=== PATIENT | female | born 1970 | race Caucasian/White ===

== ENCOUNTER 2017-01-07 23:39 | Inpatient (IN) | payer OTHER ==
[~2017-01-07] VITALS: Ht 160 cm; Wt 115.8 kg
[2017-01-08 00:15] LABS: BASO % 0.3 %; BASO ABS # 0.05 K/uL (0-0.2); COMPLETE YES; EOS % 0.6 %; HEMATOCRIT 46.3 % (37-47); IG% 0.3 %; LYMPH % 32.4 %; LYMPH ABS # 4.82 K/uL (1.2-3.4); MEAN CELL VOLUME 87.4 fL (80-100); MEAN CORPUSCULAR HEMOGLOBIN 30.2 pg (25-34); MEAN CORPUSCULAR HGB CONC 34.6 g/dl (32-36); MEAN PLATELET VOLUME 10.4 fL (7.4-10.4); MONO % 5.4 %; PLATELET COUNT 238 K/uL (130-400); WHITE BLOOD COUNT 14.89 K/uL (4.8-10.8)
--- NOTE | 2017-01-08 00:15 | EMERGENCY ROOM VISIT NOTE ---
History Report prepared by Rose: Dwayne Hines Under the Supervision of: Dr. Asaf Pritchett D.O. First contact with patient: 23:50 Chief Complaint: MENTAL HEALTH EVALUATION Stated Complaint: M.H. History of Present Illness The patient is a 46 year old female who presents to the Emergency Room for a mental health evaluation. Since September, the patient says that she has been on a "downward spiral" with her normal coping mechanisms failing her. She states that she is scared of herself and has been seeing and smelling certain things that are not there. She is smelling skunk and Vicks vapor rub. The patient walked for a total of seven and a half hours today, which she claims that she does when things are "getting bad." The patient is feeling disassociated with her own reality and claims that she is not suicidal but would like to be . Her "logical mind is being overcome with her psychological thoughts." She denies any homicidal ideations or current suicidal ideations. She drinks alcohol occasionally and smoked marijuana two days ago. She is not currently on any medications, but has been in the past. The last time she was evaluated by a mental health professional was three years ago. Source of History: patient Onset: four months ago Position: other (Mental Health) Symptom Intensity: moderate Quality: other (Mental Health) Timing: worsening Note: She is having visual and olfactory hallucinations. She is currently denying any SI or HI. She denies any other abnormal symptoms. Review of Systems See HPI for pertinent positives and negatives. A total of ten systems were reviewed and were otherwise negative. Family History Patient reports no known family medical history. Social History Smoking Status: Current Every Day Smoker Smokeless Tobacco Use: No Alcohol Use: occasionally Drug Use: marijuana Occupation Status: employed Current/Historical Medications No Active Prescriptions or Reported Meds Allergies Coded Allergies: Tetracycline (Verified Allergy, Intermediate, HIVES, 01/08/17) Codeine (Verified Adverse Reaction, Intermediate, CONFUSION, 01/08/17) Physical Exam Vital Signs Date Time Temp Pulse Resp B/P (MAP) Pulse Ox O2 Delivery O2 Flow Rate FiO2 01/07/17 23:44 36.8 96 18 139/89 95 Room Air Physical Exam GENERAL: Awake, alert, well-appearing, in no distress HENT: Normocephalic, atraumatic. Oropharynx unremarkable. EYES: Normal conjunctiva. Sclera non-icteric. NECK: Supple. No nuchal rigidity. FROM. No JVD. RESPIRATORY: Clear to auscultation. CARDIAC: Regular rate, normal rhythm. Extremities warm and well perfused. Pulses equal. ABDOMEN: Soft, non-distended. No tenderness to palpation. No rebound or guarding. No masses. RECTAL: Deferred. MUSCULOSKELETAL: Chest examination reveals no tenderness. The back is symmetrical on inspection without obvious abnormality. There is no CVA tenderness to palpation. No joint edema. LOWER EXTREMITIES: Calves are equal size bilaterally and non-tender. No edema. No discoloration. NEURO: Normal sensorium. No sensory or motor deficits noted. SKIN: No rash or jaundice noted. PSYCH: Olfactory hallucinations. Otherwise cooperative with a normal affect. Currently denies any SI or HI. Medical Decision & Procedures Laboratory Results 01/08/17 00:07 Red Blood Count 5.30, Mean Corpuscular Volume 87.4, Mean Corpuscular Hemoglobin 30.2, Mean Corpuscular Hemoglobin Concent 34.6, Mean Platelet Volume 10.4, Neutrophils (%) (Auto) 61.0, Lymphocytes (%) (Auto) 32.4, Monocytes (%) (Auto) 5.4, Eosinophils (%) (Auto) 0.6, Basophils (%) (Auto) 0.3, Neutrophils # (Auto) 9.09, Lymphocytes # (Auto) 4.82, Monocytes # (Auto) 0.80, Eosinophils # (Auto) 0.09, Basophils # (Auto) 0.05 01/08/17 00:07 Test 01/07/17 23:53 01/08/17 00:07 01/08/17 00:19 Urine Color YELLOW Urine Appearance CLEAR (CLEAR) Urine pH 5.0 (4.5-7.5) Urine Specific [place] 1.013 (1.000-1.030) Urine Protein NEG (NEG) Urine Glucose (UA) NEG (NEG) Urine Ketones NEG (NEG) Urine Occult Blood NEG (NEG) Urine Nitrite NEG (NEG) Urine Bilirubin NEG (NEG) Urine Urobilinogen NEG (NEG) Urine Leukocyte Esterase NEG (NEG) Urine Opiates Screen NEG (NEG) Urine Methadone, Qualitative NEG (NEG) Urine Barbiturates NEG (NEG) Urine Phencyclidine (PCP) Level NEG (NEG) Ur Amphetamine/Methamphetamine NEG (NEG) MDMA (Ecstasy) Screen NEG (NEG) Urine Benzodiazepines Screen NEG (NEG) Urine Cocaine Metabolite NEG (NEG) Urine Marijuana (THC) NEG (NEG) White Blood Count 14.89 K/uL (4.8-10.8) Red Blood Count 5.30 M/uL (4.2-5.4) Hemoglobin 16.0 g/dL (12.0-16.0) Hematocrit 46.3 % (37-47) Mean Corpuscular Volume 87.4 fL (80-100) Mean Corpuscular Hemoglobin 30.2 pg (25-34) Mean Corpuscular Hemoglobin Concent 34.6 g/dl (32-36) Platelet Count 238 K/uL (130-400) Mean Platelet Volume 10.4 fL (7.4-10.4) Neutrophils (%) (Auto) 61.0 % Lymphocytes (%) (Auto) 32.4 % Monocytes (%) (Auto) 5.4 % Eosinophils (%) (Auto) 0.6 % Basophils (%) (Auto) 0.3 % Neutrophils # (Auto) 9.09 K/uL (1.4-6.5) Lymphocytes # (Auto) 4.82 K/uL (1.2-3.4) Monocytes # (Auto) 0.80 K/uL (0.11-0.59) Eosinophils # (Auto) 0.09 K/uL (0-0.5) Basophils # (Auto) 0.05 K/uL (0-0.2) RDW Standard Deviation 41.4 fL (36.4-46.3) RDW Coefficient of Variation 12.9 % (11.5-14.5) Immature Granulocyte % (Auto) 0.3 % Immature Granulocyte # (Auto) 0.04 K/uL (0.00-0.02) Anion Gap 7.0 mmol/L (3-11) Est Creatinine Clear Calc Drug Dose 92.8 ml/min Estimated GFR () 87.8 Estimated GFR (Non- 75.7 BUN/Creatinine Ratio 16.4 (10-20) Calcium Level 9.0 mg/dl (8.5-10.1) Total Bilirubin 0.6 mg/dl (0.2-1) Direct Bilirubin 0.2 mg/dl (0-0.2) Aspartate Amino Transf (AST/SGOT) 14 U/L (15-37) Alanine Aminotransferase (ALT/SGPT) 30 U/L (12-78) Alkaline Phosphatase 84 U/L (45-117) Total Protein 8.1 gm/dl (6.4-8.2) Albumin 3.6 gm/dl (3.4-5.0) Thyroid Stimulating Hormone (TSH) 1.120 uIu/ml (0.300-4.500) Ethyl Alcohol mg/dL < 3.0 mg/dl (0-3) Bedside Glucose 118 mg/dl (70-90) Laboratory results reviewed by me Medications Administered Medications (Trade) Dose Ordered Sig/Sana Route Start Time Stop Time Status Last Admin Dose Admin Nicotine (Nicoderm Cq 21MG Patch) 1 patch QAM TD 01/08/17 09:00 02/07/17 08:59 01/08/17 01:02 1 PATCH Ibuprofen (Motrin Tab) 600 mg NOW STAT PO 01/08/17 01:46 01/08/17 01:47 DC 01/08/17 01:46 600 MG ED Course 2350: The patient was evaluated in room A5. A complete history and physical exam was performed. 0054: The patient is medically cleared for evaluation by case management. 0139: The on-call psychiatrist would like the patient to be evaluated further by a medicine service secondary to a possible neurologic process. 0146: Ordered Motrin Tab 600 mg PO 0159: Ordered Nicotine 1 patch TD 0200: At this time, the clocks were set back to 0100 secondary to daylight savings time. 0204: Upon reexamination, the patient was resting. I discussed the test results and treatment plan with her. [place] [facility] [place] The patient will be evaluated for further management. Medical Decision Differential diagnosis: Etiologies such as mood disorder, infection, hypoglycemia, electrolyte abnormalities, cardiac sources, intracerebral event, toxicologic, neurologic, as well as others were entertained. Patient remained in stable condition patient did not have any issues throughout the emergency department evaluation. The crisis counselor spoke with the psychiatrist and the psychiatrist was asking that the patient be admitted medically for a medical clearance for organic etiologies of her presentation. The case is also discussed with the [place] the hospitalist who accepted the patient for admission Medication Reconcilliation Current Medication List: was personally reviewed by me Blood Pressure Screening Patient's blood pressure: Normal blood pressure Blood pressure disposition: Did not require urgent referral Consults Time Called: [phone] (#2) Consulting Physician: Dr. Mayco [place] [facility] [place]ed Call: [phone] Discussed the patient's case. The patient will be evaluated for further treatment and disposition. Impression Primary Impression: Hallucinations Additional Impressions: Acute psychosis Mood disorder Scribe Attestation The scribe's documentation has been prepared under my direction and personally reviewed by me in its entirety. I confirm that the note above accurately reflects all work, treatment, procedures, and medical decision making performed by me. Departure Information Dispostion Being Evaluated By Hospitalist Prescriptions No Active Prescriptions or Reported Meds Referrals No Doctor, Assigned (PCP) Patient Instructions My [facility] Problem Qualifiers
[2017-01-08 00:33] LABS: BUN/CREATININE RATIO 16.4 (10-20); CREATININE 0.92 mg/dl (0.60-1.20); POTASSIUM 3.8 mmol/L (3.5-5.1)
[2017-01-08 00:44] LABS: THYROID STIMULATING HORMONE 1.12 uIu/ml (0.300-4.500)
[2017-01-08 00:50] LABS: BENZODIAZEPINE, URINE NEG (NEG); COCAINE,URINE NEG (NEG); PHENCYCLIDINE, URINE NEG (NEG)
[2017-01-08 00:52] LABS: MANUAL MICROSCOPIC REQUIRED? NO; REVIEW REQ? NO; URINE APPEARANCE CLEAR (CLEAR); URINE BILIRUBIN NEG (NEG); URINE COLOR YELLOW; URINE NITRITE NEG (NEG); URINE SPECIFIC GRAVITY 1.013 (1.000-1.030); UROBILINOGEN NEG (NEG)
[2017-01-08] MEDS ORDERED: IBUPROFEN 600 MG TAB PO STA (01:46)
[2017-01-08] MEDS ORDERED: NICOTINE 21 MG/24 HR TDSY ONE (01:59)
[2017-01-08] MEDS ORDERED: NURSING VERBAL MED ORDER ONE ×2 (04:00→18:00)
[2017-01-08 04:53] VITALS: O2SAT 95
[2017-01-08 05:11] VITALS: BP 139/89; PULSE 96; TEMP 36.8; Ht 160 cm; Wt 115.8 kg
[2017-01-08] MEDS ORDERED: BISMUTH SUBSALICYLATE PER ML OMNICELL CHARGE PO PRN (05:45)
[2017-01-08] MEDS ORDERED: MAGNESIUM HYDROXIDE SUSP 30 ML UDC PO PRN (05:45)
[2017-01-08] MEDS ORDERED: ALUMINUM/MAGNESIUM SUSP 30 ML UDC PO PRN (05:45)
[2017-01-08] MEDS ORDERED: SODIUM CHLORIDE 0.65% NA SOLN 45 ML (OCEAN) PRN (05:45)
[2017-01-08] MEDS ORDERED: hydrOXYzine HCL 25 MG TAB PO PRN ×2 (05:45)
[2017-01-08 06:40] VITALS: BP 139/89; PULSE 96; TEMP 36.8
[2017-01-08] MEDS: NICOTINE 21 MG/24 HR TDSY TD SCH (08:39)
[2017-01-08] MEDS: ACETAMINOPHEN 325 MG TAB PO PRN ×2 (08:52→16:59)
[2017-01-08] MEDS ORDERED: NICOTINE 21 MG/24 HR TDSY TD SCH (09:00)
[2017-01-08] MEDS ORDERED: ARIPIprazole TAB 5 MG TAB PO ONE (12:00)
[2017-01-08] MEDS ORDERED: CETIRIZINE HCL 10 MG TAB PO ONE (12:00)
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
[2017-01-08] MEDS ORDERED: ALBUTEROL HFA 8 GM INHALER INH PRN (12:15)
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
--- NOTE | 2017-01-08 17:15 | DIAGNOSTIC IMAGING REPORT ---
MRI OF THE BRAIN COMBO CLINICAL HISTORY: Psychosis. Olfactory hallucinations. Seizure. COMPARISON STUDY: No priors. TECHNIQUE: MRI of the brain was performed utilizing various T1 and T2-weighted sequences in the axial, sagittal, and coronal planes. Contrast-enhanced sequences were acquired following the administration of 11 cc of Gadavist. The examination is performed using the seizure protocol. The examination is modestly degraded by motion artifact. FINDINGS: Brain parenchyma: The brain parenchyma is normal in appearance. There is no hemorrhage or mass effect. There is no restricted diffusion to suggest acute ischemia. No enhancing mass lesion is identified on the postcontrast images. Granados-white matter differentiation is preserved. No extra-axial fluid collection is seen. The cerebellar tonsils are normal in configuration. Ventricles, sulci, and cisterns: Normal in configuration. Pituitary and sella: Unremarkable. Intracranial vasculature: Normal flow voids are maintained at the skull base. Orbits: The bony orbits are grossly intact. Orbital contents are normal in appearance. Sinuses and mastoids: Retention cysts are present in the maxillary antra and measure up to 1.9 cm. The remaining paranasal sinuses are clear. The mastoid air cells are well pneumatized. Calvarium: Unremarkable. Cervical cord: Partially visualized cervical spinal cord is normal in morphology and signal intensity. 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 IMPRESSION: No acute intracranial abnormality. Electronically signed by: Fernando Stevenson M.D. 01/08/2017 5:13 PM Dictated Date/Time: 01/08/2017 5:09 PM
[2017-01-08] MEDS: NICOTINE POLACRILEX 2 MG GUM MT PRN (20:39)
[2017-01-09] MEDS: ACETAMINOPHEN 325 MG TAB PO PRN ×3 (00:22→22:21)
[2017-01-09 06:50] VITALS: BP 124/83; PULSE 54; PULSE 66; TEMP 36.5
[2017-01-09] MEDS: CETIRIZINE HCL 10 MG TAB PO SCH (07:26)
[2017-01-09] MEDS: NICOTINE 21 MG/24 HR TDSY TD SCH (07:27)
[2017-01-09 07:39] LABS: CHOLESTEROL/HDL RATIO 2.6
[2017-01-09] MEDS ORDERED: ARIPIprazole TAB 5 MG TAB PO SCH (09:00)
[2017-01-09] MEDS: NICOTINE POLACRILEX 2 MG GUM MT PRN ×3 (09:36→19:46)
--- NOTE | 2017-01-09 15:30 | Psychiatric Progress Notes ---
Progress Note Date of Service Jan 09, 2017. Interval History Amanda Holliday is a 46-year-old female with history of bipolar I disorder who currently lives in [place] with a friend. Amanda Holliday was admitted on a 201 voluntary commitment. Patient is admitted from home . The patient was brought to the ED by the friend due to worsening of mood and psychotic symtpoms to include worsening of olfactory hallucinations (smelling vicks and skunk), visual hallucinations (seeing people out of the corners of her eyes), and feeling disconnected "that things don't seem real". Patient had an MRI on which showed no abnormality. Chief Complaint "I want to but I don't want to kill myself". Subjective Patient was seen & assessed interval progress reviewed with treatment team. Patient lying in bed for interview today. She complains of some pain in her right knee which she says is been there since August. She had been scheduled for an MRI but did not go to her scheduled appointment as she was afraid they would find something that was "surgical." She reports that she feels her thoughts are not logical. She reports that she is continues to be afraid of what she might do. She is having trouble controlling her thoughts because she reports that she is "talking for" here. She feels both manic and depressed at the same time. She reports that she feels anxious and is worried that something bad is going to happen. She gives a history of living 5 places in the past 4 months. She had been living at [facility] for about 2-1/2 months. She was evicted from there in October. 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 However she was using all of her money to drink. Since then she has stayed with 4 different friends and does not feel like going back to the 1 that she was staying with just prior to admission is a good option. She is very negative why she doesn't feel like this is a good option and then states "that probably has a lot to do with how I'm thinking." She has no income. She does get food stamps and reports that her friend buys her cigarettes and sometimes her son gives her money. She denies that she would do anything to harm herself however she is afraid of what she might do if she were not in the hospital as she would like to be . She denies any thoughts of harming others. She does report that earlier today she smelled skunk. At the time of the interview she denied smelling any scents including skunk or Vicks with mint. She denied any visual hallucinations although had these a few days ago where she thought she saw people moving or general movement although realized it wasn't real. Patient does feel varying stories about history of taking medication she does report that she was prescribed Abilify at her last hospitalization 3 years ago at [place]. She describes having difficulty getting this prescription filled on discharge. And then gives varying length of time that she actually took the medication. However she first reported that she stopped taking it a year ago and then she said "I really probably only took it for 3 or 6 months." Review of Systems Psych: denies symptoms other than stated above Constitutional: denied Cardiovascular: denied GI: denied Musculoskeletal: Right knee pain Sleep Information Total Hours of Sleep: 7.25 Meal Information Percent of Breakfast Consumed: 100 Percent of Lunch Consumed: 100 Percent of Dinner Consumed: 100 Mental Status Exam During interview pt is: alert and oriented, cooperative Appearance: appropriately dressed (obese) Eye contact is: good Motor behavior is: steady gait & station, no abnormal motor movements Speech: normal in rate, rhythm & volume (overproductive with some cursing ) Affect: anxious Mood is: other ("manic and anxious and depressed." ) Thought process: goal directed, linear, logical Thought content: paranoid (vaguely paranoid about being unsafe in any place or with herself) Suicidal thought are: denied (but is afraid of her mood state and her possible disinhibited behavior and would like to be ) Homicidal thoughts are: denied Hallucinations: denies auditory, other (smelled skunk earlier today) Cognition: memory grossly intact, attention grossly intact Intelligence estimated to be: average Insight: fair Judgement: fair Impression The patient is a 46-year-old single white female with a long-standing history of what sounds to be bipolar 1 disorder most recently manic now becoming mixed with psychotic features. She describes a long-standing history of hallucinations to include olfactory hallucinations and visual hallucinations as early as her 20s as well as auditory hallucinations. She states these do not occur in between extreme mood states. But when she is feeling and she does now these emerge. Although this could be simply bipolar disorder mixed with psychotic features she does not appear grandiose, she does not have flight of ideas, she does not have loosening of associations, she is not disorganized, her affect seems remarkably reasonable to the setting not extremely depressed nor elevated/grandiose. I am concerned given the nature of the visual hallucinations in the olfactory hallucinations that we should rule out seizure disorder such as temporal lobe epilepsy. We have consulted neurology to ask for their evaluation and opinion on obtaining an EEG and possibly an MRI with focus on temporal lobes. In the meantime given the patient has had benefit on both antiseizure medicines as well as atypical anti-psychotics we will pursue Abilify to target mood stabilization. Although this can worsen seizure symptoms patient is in a protective place and will be evaluated shortly. We will avoid antiseizure medicines until after neurology has rendered and opinion on further evaluation and then decide if there would be utility in considering those medications over Abilify. She states sleep is one of her most long-standing concerns it may be worthwhile to add a make medication to Abilify if she does not begin to sleep as her mood stabilizes. Psychologically the patient is remarkably grounded and able to observe herself and report symptoms she experiences as well as her sense of feeling out of control and fearful of what she will do in this state. It is an odd combination as usually our manic patients with psychotic features has much more limited insight and much more disinhibited behaviors. Furthermore depressed with psychotic features patients usually are much more psychomotor retarded and flat with negative symptoms of psychosis. This patient demonstrates neither. I am not presently worried about an ongoing substance use disorder although I have dissuaded the patient from continuing on marijuana as it can make psychosis worse. Although it does sound like she binge drinks when she is in disinhibited states or has access to alcohol this is not an acute issue but should be addressed during her hospital stay. She does smoke tobacco for many years she has precontemplation all about quitting wanting to focus on her neurologic and psychiatric symptoms at this time. Socially the patient is living with a friend. It sounds like she has had chaotic social life and is without a job and without a home residence in without an ID card. We will appreciate social science instructor help in connecting her to resources in her community so she has follow-up at time of discharge. Plan (1) Mood disorder #1 safety patient feels her mood disorder is so extreme that she feels "would rather be " as well as disconnected and feels she cannot trust her own behavior as she feels out of control and is having hallucinations. Inpatient cares the most appropriately stressed restrictive setting for care at this time until patient's mood stabilized and we are able to get her access to aftercare. #2 neurology consult for their opinion regarding utility of EEG and possible MRI imaging of the temporal lobe to rule out temporal lobe epilepsy given some of the atypical features of her presentation to include olfactory and visual hallucinations that only occur with mood episodes and yet her affect is not consistent with others with manic with psychotic features are depressed with psychotic features as noted above #3 medications for psychosis Abilify 5 mg today and 10 mg by mouth daily with titration as tolerated to stabilize mood and treat psychosis We will obtain fasting lipids and blood sugar in the morning #4 group, lassiter milieu, supportive therapy, safety checks while an inpatient unit 01/09 -fast labs within normal limits. - MRI normal -EEG results pending -patient agrees to increased Abilify to 15 mg. No side effects including akathisia from current dose. (2) Asthma Albuterol inhaler when necessary, Zyrtec to control allergies triggers, recommend she quit smoking (3) GERD (gastroesophageal reflux disease) Patient states dietary modulation helps control her GERD, she will manage teasing her diet from the menu (4) Knee pain, right Patient has access to ibuprofen and Tylenol when necessary on the unit. She will need follow-up with primary care for further evaluation as she said previously she was pending imaging but has not seen primary care in some time. 01/09 Patient may have ibuprofen prn. Patient did report that she has had asthma attack if takes more than 600 mg of ibuprofen at a time. (5) Nicotine dependence Recommend smoking cessation, patient is precontemplation all at this time Discharge / Aftercare Planning Primary Care Physician: Name: None Therapist: Name: None Performance Improvement Coordinator: Name: None Visit Code E&M Code: 66029 Inventory Assets Strengths: Patient is willing for care, she is willing to take medications, she is a good historian, she seems very intelligent. Needs: ID card, aftercare, mood stabilization, safety Risk Factors Assessment : Yes /single/: Yes Health problems: Yes Mental Health Diagnoses: Yes Previous psychiatric stay: Yes Hopelessness: Yes Smoker: Yes Protective Factors Assessment Shinto beliefs: No : No Responsible for young children: No Employed: No Stable relationships: No Supportive family: No Good rapport with provider: No Data Vital Signs Last 24 Hrs: Date Time Temp Pulse Resp B/P (MAP) Pulse Ox O2 Delivery O2 Flow Rate FiO2 01/09/17 06:50 36.5 54 18 124/83 66 124/83 Meds Administered Last 24 Hrs: Current Inpatient Medications Medications (Trade) Dose Ordered Sig/Sana Route Start Time Stop Time Status Last Admin Dose Admin Acetaminophen (Tylenol Tab) 650 mg Q4H PRN PO 01/08/17 05:45 02/07/17 05:44 01/09/17 12:53 650 MG Al Hydroxide/Mg Hydroxide (Maalox Susp) 30 ml Q4H PRN PO 01/08/17 05:45 02/07/17 05:44 Bismuth Subsalicylate (Kaopectate Liqd) 15 ml DAILY PRN PO 01/08/17 05:45 02/07/17 05:44 Magnesium Hydroxide (Milk Of Magnesia Susp) 30 ml DAILY PRN PO 01/08/17 05:45 02/07/17 05:44 Sodium Chloride ([place] Nasal [place]) PRN PRN NA 01/08/17 05:45 02/07/17 05:44 Hydroxyzine HCl (Vistaril Tab) 50 mg HSZ PRN PO 01/08/17 05:45 02/07/17 05:44 Hydroxyzine HCl (Vistaril Tab) 25 mg Q4H PRN PO 01/08/17 05:45 02/07/17 05:44 Nicotine (Nicoderm Cq 21MG Patch) 1 patch QAM TD 01/08/17 09:00 02/07/17 08:59 01/09/17 07:27 1 PATCH Miscellaneous (Remove Nicoderm Patch) 1 ea DAILY@2100 N/A 01/08/17 21:00 02/07/17 20:59 Aripiprazole (Abilify Tab) 10 mg QAM PO 01/09/17 09:00 02/08/17 08:59 01/09/17 07:26 10 MG Cetirizine HCl (zyrTEC TAB) 10 mg QAM PO 01/09/17 09:00 02/08/17 08:59 01/09/17 07:26 10 MG Albuterol (Ventolin Hfa Inhaler) 2 puffs Q4H PRN INH 01/08/17 12:15 02/07/17 12:14 Nicotine Polacrilex ([place] 2MG Gum) 1 piece Q2HWA PRN MT 01/08/17 18:15 02/07/17 18:14 01/09/17 09:36 1 PIECE Lab Results Last 24 Hrs: Last 24 Hours Test 01/09/17 06:51 Fasting Glucose 97 mg/dl Triglycerides Level 73 mg/dl Cholesterol Level 153 mg/dl HDL Cholesterol 59 mg/dl LDL Cholesterol, Calculated 79 mg/dl VLDL Cholesterol, Calculated 15 mg/dl Cholesterol/HDL Ratio 2.6
[2017-01-09] MEDS: IBUPROFEN 600 MG TAB PO PRN (16:58)
--- NOTE | 2017-01-09 17:02 | EEG Procedure Note ---
EEG Procedure Note Date of Service Jan 09, 2017. Start / End Times Start Time: 10:07am End Time: 10:27am Referring Physician Alejandra Collins History 46 year old female with an episode of missed time. EEG for further eval of possible seizure etiology. Home Medication List No Active Prescriptions or Reported Meds Inpatient Medication List Current Inpatient Medications Medications (Trade) Dose Ordered Sig/Sana Route Start Time Stop Time Status Last Admin Dose Admin Acetaminophen (Tylenol Tab) 650 mg Q4H PRN PO 01/08/17 05:45 02/07/17 05:44 01/09/17 12:53 650 MG Al Hydroxide/Mg Hydroxide (Maalox Susp) 30 ml Q4H PRN PO 01/08/17 05:45 02/07/17 05:44 Bismuth Subsalicylate (Kaopectate Liqd) 15 ml DAILY PRN PO 01/08/17 05:45 02/07/17 05:44 Magnesium Hydroxide (Milk Of Magnesia Susp) 30 ml DAILY PRN PO 01/08/17 05:45 02/07/17 05:44 Sodium Chloride (Marshall Nasal Webber) PRN PRN NA 01/08/17 05:45 02/07/17 05:44 Hydroxyzine HCl (Vistaril Tab) 50 mg HSZ PRN PO 01/08/17 05:45 02/07/17 05:44 Hydroxyzine HCl (Vistaril Tab) 25 mg Q4H PRN PO 01/08/17 05:45 02/07/17 05:44 Nicotine (Nicoderm Cq 21MG Patch) 1 patch QAM TD 01/08/17 09:00 02/07/17 08:59 01/09/17 07:27 1 PATCH Miscellaneous (Remove Nicoderm Patch) 1 ea DAILY@2100 N/A 01/08/17 21:00 02/07/17 20:59 Cetirizine HCl (zyrTEC TAB) 10 mg QAM PO 01/09/17 09:00 02/08/17 08:59 01/09/17 07:26 10 MG Albuterol (Ventolin Hfa Inhaler) 2 puffs Q4H PRN INH 01/08/17 12:15 02/07/17 12:14 Nicotine Polacrilex (Nicorette 2MG Gum) 1 piece Q2HWA PRN MT 01/08/17 18:15 02/07/17 18:14 01/09/17 15:36 1 PIECE Aripiprazole (Abilify Tab) 15 mg QAM PO 01/10/17 09:00 02/08/17 08:59 Ibuprofen (Motrin Tab) 600 mg TID PRN PO 01/09/17 15:45 02/08/17 15:44 Description This is a 21 electrode EEG with a single channel dedicated to limited EKG. The electrodes were placed in accordance with the International 10-20 system. At the start of the recording the patient was in an awake state. The background was well organized and composed of symmetric mixed alpha and beta frequencies. There was a well formed symmetric moderate amplitude posterior dominant rhythm of 9-10Hz that was reactive to eye opening and closure. Hyperventilation was not done. Photic stimulation at various frequencies produced no abnormalities. There was no state changes or sleep transients. Interpretation This is a normal awake only routine EEG There was no electrographic seizures or epileptiform discharges. Clinical Correlation A normal EEG does not rule out epilepsy if there is a strong clinical suspicion.
[2017-01-10 06:44] VITALS: BP_SYST 128; BP_SYST 133; BP_DIAS 81; BP_DIAS 88; PULSE 57; PULSE 66; TEMP 36.4
[2017-01-10] MEDS: IBUPROFEN 600 MG TAB PO PRN (06:55)
[2017-01-10] MEDS: NICOTINE POLACRILEX 2 MG GUM MT PRN ×3 (07:41→18:41)
[2017-01-10] MEDS: ARIPIprazole TAB 5 MG TAB PO SCH (08:20)
[2017-01-10] MEDS: CETIRIZINE HCL 10 MG TAB PO SCH (08:20)
[2017-01-10] MEDS: NICOTINE 21 MG/24 HR TDSY TD SCH (08:23)
--- NOTE | 2017-01-10 09:45 | Psychiatric Progress Notes ---
Progress Note Date of Service Jan 10, 2017. Interval History Amanda Holliday is a 46-year-old female with history of bipolar I disorder who currently lives in [place] with a friend. Amanda Holliday was admitted on a 201 voluntary commitment. Patient is admitted from home . The patient was brought to the ED by the friend due to worsening of mood and psychotic symtpoms to include worsening of olfactory hallucinations (smelling vicks and skunk), visual hallucinations (seeing people out of the corners of her eyes), and feeling disconnected "that things don't seem real". Patient had an MRI on which showed no abnormality and an EEG on 01/10 which was unremarkable. Chief Complaint "I woke up anxious". Subjective Patient was seen & assessed interval progress reviewed with nursing. Staff report the patient's affect has been anything from flat to jovial. She has been out of bed and interacting with peers. Patient reports that she woke up very anxious this morning. She has been attempting to distract herself from her anxiety by focusing on trivial things such as thinking about "how this coffee cup is made". She continues to feel that life isn't worth living and that she would rather not be here but denies active intention or plan for suicide. She denies any side effects from Abilify. She does feel like her thoughts are slower and more logical. The patient talks about her stressors of no income, no place to live. She also reports that her previous landlord did not allow her back into her apartment to get her belongings and she does not have much clothing and does not have any identification. Patient EEG done on is unremarkable. We reviewed her extensive past medication trials; patient had reported vaginal bleeding when she took BuSpar in the past however she did have a total hysterectomy 3 years ago. We did discuss a retrial of this medication but patient prefers not to try again. She agrees to a trial of gabapentin which she has never taken for anxiety off label. Review of Systems Respiratory: No cough, No sputum, No wheezing, No shortness of breath, No dyspnea on exertion, No dyspnea at rest, No hemoptysis, No problem reported Cardiovascular: No chest pain, No orthopnea, No PND, No edema, No claudication , No palpitations, No problem reported Abdomen: No pain, No nausea, No vomiting, No diarrhea, No constipation, No GI bleeding, No problem reported Musculoskeletal: + joint pain (right knee pain) Sleep Information Total Hours of Sleep: 6.50 Meal Information Percent of Breakfast Consumed: 100 Percent of Lunch Consumed: 100 Percent of Dinner Consumed: 100 Mental Status Exam During interview pt is: alert and oriented, cooperative Appearance: appropriately dressed (obese) Eye contact is: good Motor behavior is: steady gait & station (slight limp favoring right knee), no abnormal motor movements Speech: normal in rate, rhythm & volume (some cursing ) Affect: labile, anxious Mood is: anxious Thought process: goal directed, linear, logical Thought content: reality based without delusions Suicidal thought are: denied (but would like to be ) Homicidal thoughts are: denied Hallucinations: denies auditory, denies visual, other (denies smelling skunk or vicks) Cognition: memory grossly intact, attention grossly intact Intelligence estimated to be: average Insight: fair Judgement: fair Summary of Past History The patient reports multiple med trials to include but not limited to: -Seroquel - disconnected -Abilify plus Klonopin - that was the best combination believes her dose was possibly 20 mg, insurance barriers after her discharge from [facility] kept her from continuing that medication -Paxil none Buspar - Vaginal bleeding Depakote weight gain and difficulty with the labs ultimately believe she was placed on Abilify Wellbutrinput on with Depakote believe she tolerated it Lithobid tremor Risperdal - edema Tegretol believes this medicine is familiar she may been on it for a brief time but is unsure Sage extremely tired was accused of being on drugs because she was so obtunded Trazodone ineffective for sleep Ambien ineffective for sleep Baljeet ineffective for sleep "Some XR medication" that insurance wouldn't pay for really helped my sleep Klonopin alongside Abilify and trazodone at last hospital discharge Impression The patient is a 46-year-old single white female with a long-standing history of what sounds to be bipolar 1 disorder most recently manic now becoming mixed with psychotic features. She describes a long-standing history of hallucinations to include olfactory hallucinations and visual hallucinations as early as her 20s as well as auditory hallucinations. She states these do not occur in between extreme mood states. But when she is feeling and she does now these emerge. Although this could be simply bipolar disorder mixed with psychotic features she does not appear grandiose, she does not have flight of ideas, she does not have loosening of associations, she is not disorganized, her affect seems remarkably reasonable to the setting not extremely depressed nor elevated/grandiose. I am concerned given the nature of the visual hallucinations in the olfactory hallucinations that we should rule out seizure disorder such as temporal lobe epilepsy. We have consulted neurology to ask for their evaluation and opinion on obtaining an EEG and possibly an MRI with focus on temporal lobes. In the meantime given the patient has had benefit on both antiseizure medicines as well as atypical anti-psychotics we will pursue Abilify to target mood stabilization. Although this can worsen seizure symptoms patient is in a protective place and will be evaluated shortly. We will avoid antiseizure medicines until after neurology has rendered and opinion on further evaluation and then decide if there would be utility in considering those medications over Abilify. She states sleep is one of her most long-standing concerns it may be worthwhile to add a make medication to Abilify if she does not begin to sleep as her mood stabilizes. Psychologically the patient is remarkably grounded and able to observe herself and report symptoms she experiences as well as her sense of feeling out of control and fearful of what she will do in this state. It is an odd combination as usually our manic patients with psychotic features has much more limited insight and much more disinhibited behaviors. Furthermore depressed with psychotic features patients usually are much more psychomotor retarded and flat with negative symptoms of psychosis. This patient demonstrates neither. I am not presently worried about an ongoing substance use disorder although I have dissuaded the patient from continuing on marijuana as it can make psychosis worse. Although it does sound like she binge drinks when she is in disinhibited states or has access to alcohol this is not an acute issue but should be addressed during her hospital stay. She does smoke tobacco for many years she has precontemplation all about quitting wanting to focus on her neurologic and psychiatric symptoms at this time. Socially the patient is living with a friend. It sounds like she has had chaotic social life and is without a job and without a home residence in without an ID card. We will appreciate social studies teacher help in connecting her to resources in her community so she has follow-up at time of discharge. Plan (1) Mood disorder #1 safety patient feels her mood disorder is so extreme that she feels "would rather be " as well as disconnected and feels she cannot trust her own behavior as she feels out of control and is having hallucinations. Inpatient cares the most appropriately stressed restrictive setting for care at this time until patient's mood stabilized and we are able to get her access to aftercare. #2 neurology consult for their opinion regarding utility of EEG and possible MRI imaging of the temporal lobe to rule out temporal lobe epilepsy given some of the atypical features of her presentation to include olfactory and visual hallucinations that only occur with mood episodes and yet her affect is not consistent with others with manic with psychotic features are depressed with psychotic features as noted above #3 medications for psychosis Abilify 5 mg today and 10 mg by mouth daily with titration as tolerated to stabilize mood and treat psychosis We will obtain fasting lipids and blood sugar in the morning #4 group, lassiter milieu, supportive therapy, safety checks while an inpatient unit 01/09 -fast labs within normal limits. - MRI normal -EEG results pending -patient agrees to increased Abilify to 15 mg. No side effects including akathisia from current dose. 01/10 -EEG done yesterday results: Normal awake only routine EEG. There was no electrographic seizures or epileptiform discharges. - Discussed risks benefits and alternatives for medications for anxiety. Reviewed patient's past med trials. Patient agrees to a trial of gabapentin for anxiety she understands this is an off label use. We'll start at 300 mg today with titration tomorrow to twice a day and increased to 3 times per day on 01/12 -Patient needs aftercare with psychiatry and a therapist. She would benefit from having a rn case manager as she has a history of very poor compliance after discharge from inpatient hospitalizations. (2) Asthma Albuterol inhaler when necessary, Zyrtec to control allergies triggers, recommend she quit smoking (3) GERD (gastroesophageal reflux disease) Patient states dietary modulation helps control her GERD, she will manage teasing her diet from the menu (4) Knee pain, right Patient has access to ibuprofen and Tylenol when necessary on the unit. She will need follow-up with primary care for further evaluation as she said previously she was pending imaging but has not seen primary care in some time. 01/09 Patient may have ibuprofen prn. Patient did report that she has had asthma attack if takes more than 600 mg of ibuprofen at a time. 01/10 patient should have outpatient follow-up with orthopedics after discharge. Patient did have a brace ordered by orthopedics in August. It is with her belongings that she has been unable to retrieve from her apartment. (5) Nicotine dependence Recommend smoking cessation, patient is precontemplation all at this time Discharge / Aftercare Planning Primary Care Physician: Name: None Therapist: Name: None Dinkey Operator: Name: None Visit Code E&M Code: 48760 Inventory Assets Strengths: Patient is willing for care, she is willing to take medications, she is a good historian, she seems very intelligent. Needs: ID card, aftercare, mood stabilization, safety Risk Factors Assessment : Yes /single/: Yes Health problems: Yes Mental Health Diagnoses: Yes Previous psychiatric stay: Yes Hopelessness: Yes Smoker: Yes Protective Factors Assessment [employer] beliefs: No : No Responsible for young children: No Employed: No Stable relationships: No Supportive family: No Good rapport with provider: No Data Vital Signs Last 24 Hrs: Date Time Temp Pulse Resp B/P (MAP) Pulse Ox O2 Delivery O2 Flow Rate FiO2 01/10/17 06:44 36.4 57 18 133/81 66 128/88 Meds Administered Last 24 Hrs: Meds Administered (Past 24Hrs) Medications (Trade) Dose Ordered Sig/Sana Route Start Time Stop Time Status Last Admin Dose Admin Aripiprazole (Abilify Tab) 10 mg QAM PO 01/09/17 09:00 01/09/17 15:34 DC 01/09/17 07:26 10 MG Aripiprazole (Abilify Tab) 10 mg 1200 ONCE PO 01/08/17 12:00 01/08/17 12:01 DC 01/08/17 11:57 10 MG Cetirizine HCl (zyrTEC TAB) 10 mg QAM PO 01/09/17 09:00 02/08/17 08:59 01/10/17 08:20 10 MG Cetirizine HCl (zyrTEC TAB) 10 mg 1200 ONCE PO 01/08/17 12:00 01/08/17 12:01 DC 01/08/17 11:57 10 MG Nicotine Polacrilex (Nicorette 2MG Gum) 1 piece Q2HWA PRN MT 01/08/17 18:15 02/07/17 18:14 01/10/17 07:41 1 PIECE Aripiprazole (Abilify Tab) 15 mg QAM PO 01/10/17 09:00 02/08/17 08:59 01/10/17 08:20 15 MG Ibuprofen (Motrin Tab) 600 mg TID PRN PO 01/09/17 15:45 02/08/17 15:44 01/10/17 06:55 600 MG
[2017-01-10] MEDS ORDERED: GABAPENTIN 300 MG CAP PO ONE (11:30)
[2017-01-11 06:47] VITALS: BP_SYST 124; BP_DIAS 82; BP_DIAS 84; PULSE 61; PULSE 64; TEMP 36.6
[2017-01-11] MEDS: IBUPROFEN 600 MG TAB PO PRN ×2 (08:22→20:47)
[2017-01-11] MEDS: GABAPENTIN 300 MG CAP PO SCH ×2 (08:25→22:00)
[2017-01-11] MEDS: CETIRIZINE HCL 10 MG TAB PO SCH (08:25)
[2017-01-11] MEDS: ARIPIprazole TAB 5 MG TAB PO SCH (08:25)
[2017-01-11] MEDS: NICOTINE 21 MG/24 HR TDSY TD SCH (08:26)
[2017-01-11] MEDS: NICOTINE POLACRILEX 2 MG GUM MT PRN ×3 (09:04→17:59)
--- NOTE | 2017-01-11 11:14 | Psychiatric Progress Notes ---
Progress Note Date of Service Jan 11, 2017. Interval History Amanda Holliday is a 46-year-old female with history of bipolar I disorder who currently lives in [place] with a friend. Amanda Holliday was admitted on a 201 voluntary commitment. Patient is admitted from home . The patient was brought to the ED by the friend due to worsening of mood and psychotic symtpoms to include worsening of olfactory hallucinations (smelling vicks and skunk), visual hallucinations (seeing people out of the corners of her eyes), and feeling disconnected "that things don't seem real". Patient had an MRI on which showed no abnormality and an EEG on 01/10 which was unremarkable. Chief Complaint "I was admitted because the illogical part of my brain was starting to take over the logical part". Subjective Patient was seen & assessed interval progress reviewed with Treatment Team. I saw the patient individually in order to assess her current mental status, make any necessary adjustments in her treatment plan, and address issues and questions that may arise. The patient tells me that she feels that Abilify ( aripiprazole) has helped "clear the fog." By "fog," she means the "part of [her ] brain that thinks illogically, and the part doesn't." For example, when thinking illogically, she reports that she sometimes "says things that aren't true aren't based in reality," even though at the time part of her recognizes that she is reporting things that aren't based in reality. The patient also tells me that at the time of her admission she was "going through mary grace and depression at the same time." She describes walking [place] streets [place] town for approximately 7-1/2 hours without stopping to rest or to eat. She also notes that her thoughts were "racing," and that she was not thinking logically. She acknowledges that she frequently is not adherent with her prescribed psychiatric medications, and reports that she had not been taking her medications as prescribed. When the patient's presenting symptoms is that she experiences auditory hallucinations, and has done so for approximately the past 22 years. Most typically, she smells "skunk," and says that the odor is supple at first, and then progresses over time to the point that "it smells like my nose is up a skunk's ass." Today, the patient says that the most recent time that happened was this morning, but it was short-lived and only lasted about 15 minutes. The patient reports that she has experienced other olfactory hallucinations example, she recently experienced a very strong sensation that she was smelling "Vicks VapoRub." The patient denies any history of head trauma, loss of consciousness or seizures, and, as above, a logical workup has not identified any underlying neurologic explanation for her presenting symptoms which, in addition to olfactory hallucinations have, at times, included visual hallucinations, such as "a man standing they're holding a certificate for the baby I miscarried." The patient reports that, to her surprise, she has been "sleeping good" in the hospital, I circumstance that is usually not the case. She also reports that she is tolerating the medications well, and feels that both Abilify and gabapentin have been helpful. In particular, she feels that gabapentin has helped with her right knee pain, a condition that may have been exacerbated by her walking for 7-1/2 hours shortly before her admission. Review of Systems Constitutional: No fever, No chills, No sweats, No weight loss, No weakness, No fatigue, No problem reported ENT: No hearing loss, No unusual epistaxis, No nasal symptoms, No sore throat, No tinnitus, No dental problems, No trouble swallowing, No problem reported Respiratory: No cough, No sputum, No wheezing, No shortness of breath, No dyspnea on exertion, No dyspnea at rest, No hemoptysis, No problem reported ( the patient reports a history of asthma but no current symptoms) Cardiovascular: No chest pain, No orthopnea, No PND, No edema, No claudication , No palpitations, No problem reported Musculoskeletal: + problem reported (the patient reports that she injured her right knee on 08/15/2016 while dancing to vigorously, and indicates that she may have exacerbated the injury by walking for 7-1/2 hours continuously prior to admission.) Sleep Information Total Hours of Sleep: 7.50 Meal Information Percent of Breakfast Consumed: 100 Percent of Lunch Consumed: 100 Percent of Dinner Consumed: 100 Mental Status Exam During interview pt is: alert and oriented, cooperative Appearance: appropriately dressed (obese) Eye contact is: good Motor behavior is: steady gait & station (slight limp favoring right knee), no abnormal motor movements Speech: normal in rate, rhythm & volume (The patient is somewhat loquacious, but her speech is not pressured) Affect: euthymic, anxious Mood is: other ("Pretty good. I don't feel manic or depressed.") Thought process: goal directed, linear, logical Thought content: reality based without delusions Suicidal thought are: denied (but would like to be ) Homicidal thoughts are: denied Hallucinations: denies auditory, denies visual, other (the patient tells me that she again smelled "skunk" this morning, briefly, but feels that the frequency of her olfactory hallucinations has diminished on the current medication regimen) Cognition: memory grossly intact, attention grossly intact Intelligence estimated to be: average Insight: fair Judgement: fair Summary of Past History The patient reports multiple med trials to include but not limited to: -Seroquel - disconnected -Abilify plus Klonopin - that was the best combination believes her dose was possibly 20 mg, insurance barriers after her discharge from [facility] kept her from continuing that medication -Paxil none Buspar - Vaginal bleeding Depakote weight gain and difficulty with the labs ultimately believe she was placed on Abilify Wellbutrinput on with Depakote believe she tolerated it Lithobid tremor Risperdal - edema Tegretol believes this medicine is familiar she may been on it for a brief time but is unsure Zafarmercy extremely tired was accused of being on drugs because she was so obtunded Trazodone ineffective for sleep Ambien ineffective for sleep Baljeet ineffective for sleep "Some XR medication" that insurance wouldn't pay for really helped my sleep Klonopin alongside Abilify and trazodone at last hospital discharge Impression The patient is a 46-year-old single white female who reports she has a known diagnosis of bipolar disorder. She also has a long history, dating back approximately 22 years, of frequent olfactory hallucinations, primarily of "a skunk." Further, she has a intermittent history of visual hallucinations, such as seeing a man who was holding a piece of paper and standing in front of her, or seen clenches of people walk past her when she later realizes that no one is there. The patient tells me that she was experiencing mixed symptoms of mary grace and depression prior to admission, but basically describes symptoms consistent with mary grace, such as decreased desire for sleep, increased energy, behavior such as walking for 7-1/2 hours continuously, and racing thoughts. Further, she tells me that she was becoming aware that her thoughts were growing illogical, a circumstance that she refers to as "a fog." A neurological evaluation does not reveal a clear neurological explanation for the olfactory hallucinations, but is thought that is possibly related to a migraine equivalent. (The patient reports that she does not have any known history of migraine headaches, although she sometimes gets sinus pressure headaches "when it's about terrain." ) Complex partial seizures are not necessarily identified in most cases on routine EEG and other standard neurologic testing, and are often diagnosed based upon clinical presentation. The patient tells me that she did notice a decrease in the frequency of her olfactory hallucinations while she was taking valproic acid. Currently, she says that she is noticing a decrease in the frequency and intensity of the hallucinations while taking gabapentin and Abilify. It is not clear if the patient has ever had a trial of carbamazepine, which might be useful both for complex partial seizures and bipolar disorder. The plan will be to continue aripiprazole 15 mg daily and titrate gabapentin. Plan (1) Mood disorder #1 safety patient feels her mood disorder is so extreme that she feels "would rather be " as well as disconnected and feels she cannot trust her own behavior as she feels out of control and is having hallucinations. Inpatient cares the most appropriately stressed restrictive setting for care at this time until patient's mood stabilized and we are able to get her access to aftercare. #2 neurology consult for their opinion regarding utility of EEG and possible MRI imaging of the temporal lobe to rule out temporal lobe epilepsy given some of the atypical features of her presentation to include olfactory and visual hallucinations that only occur with mood episodes and yet her affect is not consistent with others with manic with psychotic features are depressed with psychotic features as noted above #3 medications for psychosis Abilify 5 mg today and 10 mg by mouth daily with titration as tolerated to stabilize mood and treat psychosis We will obtain fasting lipids and blood sugar in the morning #4 group, lassiter milieu, supportive therapy, safety checks while an inpatient unit 01/09 -fast labs within normal limits. - MRI normal -EEG results pending -patient agrees to increased Abilify to 15 mg. No side effects including akathisia from current dose. 01/10 -EEG done yesterday results: Normal awake only routine EEG. There was no electrographic seizures or epileptiform discharges. - Discussed risks benefits and alternatives for medications for anxiety. Reviewed patient's past med trials. Patient agrees to a trial of gabapentin for anxiety she understands this is an off label use. We'll start at 300 mg today with titration tomorrow to twice a day and increased to 3 times per day on 01/12 -Patient needs aftercare with psychiatry and a therapist. She would benefit from having a case operator as she has a history of very poor compliance after discharge from inpatient hospitalizations. 01/11 -While yesterday's EEG showed no electrographic seizures or epileptoid discharges, and absence of positive findings on EEG does not necessarily rule out complex partial seizures. The patient is not known to have a history of grand mal seizures or other forms of seizures, and while it is certainly possible that the patient's olfactory and visual hallucinations may represent a migraine equivalent, it may be somewhat atypical for the patient to have such specific visual hallucinations that she is able to read a hallucinated piece of paper that is being held in the hallucinated hand of a man that she sees standing in front of her., Getting the clinical picture is the fact the patient acknowledges that she has been chronically nonadherent with her outpatient medications. She also indicates that she had been drinking "very heavily" until the past September. More specifically, she said that she was drinking "a bottle of [place] iced tea, with beer chasers" on a daily basis while she was living above a bar. She said she stopped in September after she moved , became concerned that she was drinking too much, and has been largely abstinent since that time, although she does admit that she has had "several beers" in the week leading up to the admission. Today, the plan is to continue titrating gabapentin to 300 mg 3 times a day, and we will continue aripiprazole 15 mg daily. (2) Asthma Albuterol inhaler when necessary, Zyrtec to control allergies triggers, recommend she quit smoking (3) GERD (gastroesophageal reflux disease) Patient states dietary modulation helps control her GERD, she will manage teasing her diet from the menu (4) Knee pain, right Patient has access to ibuprofen and Tylenol when necessary on the unit. She will need follow-up with primary care for further evaluation as she said previously she was pending imaging but has not seen primary care in some time. 01/09 Patient may have ibuprofen prn. Patient did report that she has had asthma attack if takes more than 600 mg of ibuprofen at a time. 01/10 patient should have outpatient follow-up with orthopedics after discharge. Patient did have a brace ordered by orthopedics in August. It is with her belongings that she has been unable to retrieve from her apartment. 01/11 today, the patient reports that her knee pain has been diminished, a circumstance that she attributes to gabapentin. She also has insight into the fact that she may have exacerbated an earlier knee injury by walking excessively on the day prior to admission. (5) Nicotine dependence Recommend smoking cessation, patient is precontemplation all at this time 01/11 I encouraged the patient to continue to consider smoking cessation, and advised her strongly in this direction. The patient says that she is certainly considering it and is aware of the related health hazards. Discharge / Aftercare Planning Primary Care Physician: Name: None Therapist: Name: None Refinery Operator Helper: Name: None Visit Code E&M Code: 61971 Inventory Assets Strengths: Patient is willing for care, she is willing to take medications, she is a good historian, she seems very intelligent. Needs: ID card, aftercare, mood stabilization, safety Risk Factors Assessment : Yes /single/: Yes Health problems: Yes Mental Health Diagnoses: Yes Previous psychiatric stay: Yes Hopelessness: Yes Smoker: Yes Protective Factors Assessment Jain beliefs: No : No Responsible for young children: No Employed: No Stable relationships: No Supportive family: No Good rapport with provider: No Data Vital Signs Last 24 Hrs: Date Time Temp Pulse Resp B/P (MAP) Pulse Ox O2 Delivery O2 Flow Rate FiO2 01/11/17 06:47 36.6 61 18 124/82 64 124/84 Meds Administered Last 24 Hrs: Meds Administered (Past 24Hrs) Medications (Trade) Dose Ordered Sig/Sana Route Start Time Stop Time Status Last Admin Dose Admin Aripiprazole (Abilify Tab) 15 mg QAM PO 01/10/17 09:00 02/08/17 08:59 01/11/17 08:25 15 MG Ibuprofen (Motrin Tab) 600 mg TID PRN PO 01/09/17 15:45 12/6/17 15:44 01/11/17 08:22 600 MG Gabapentin (Neurontin Cap) 300 mg BID PO 01/11/17 09:00 01/11/17 22:01 01/11/17 08:25 300 MG Gabapentin (Neurontin Cap) 300 mg 1130 ONCE PO 01/10/17 11:30 01/10/17 11:31 DC 01/10/17 12:29 300 MG
[2017-01-12 06:43] VITALS: BP_SYST 121; BP_SYST 127; BP_DIAS 84; PULSE 51; PULSE 66; TEMP 36.4
[2017-01-12] MEDS: NICOTINE POLACRILEX 2 MG GUM MT PRN ×5 (07:02→21:15)
[2017-01-12] MEDS: NICOTINE 21 MG/24 HR TDSY TD SCH (07:59)
[2017-01-12] MEDS: CETIRIZINE HCL 10 MG TAB PO SCH (07:59)
[2017-01-12] MEDS: ARIPIprazole TAB 5 MG TAB PO SCH (07:59)
[2017-01-12] MEDS ORDERED: GABAPENTIN 300 MG CAP PO SCH (09:00)
[2017-01-12] MEDS: GABAPENTIN 300 MG CAP PO SCH ×2 (14:51→21:15)
[2017-01-12] MEDS ORDERED: GABAPENTIN 300 MG CAP PO ONE (15:00)
--- NOTE | 2017-01-12 15:13 | Psychiatric Progress Notes ---
Progress Note Date of Service Jan 12, 2017. Interval History Amanda Holliday is a 46-year-old female with history of bipolar I disorder who currently lives in [place] with a friend. Amanda Holliday was admitted on a 201 voluntary commitment. Patient is admitted from home . The patient was brought to the ED by the friend due to worsening of mood and psychotic symtpoms to include worsening of olfactory hallucinations (smelling vicks and skunk), visual hallucinations (seeing people out of the corners of her eyes), and feeling disconnected "that things don't seem real". Patient had an MRI on which showed no abnormality and an EEG on 01/10 which was unremarkable. Chief Complaint "The fog is back, and I have been hearing things." Subjective Patient was seen & assessed interval progress reviewed with Treatment Team. I met individually with the patient today in order to assess her current mental status, review her current treatment plan, make necessary changes in her treatment regimen and address issues and concerns that may arise. The patient begins by telling me that her "fog" has "come back." By "foggy," she means confusion and a sense of dissociation or difficulty distinguishing reality from fiction. She also tells me that she has been hearing sounds," that she can't quite make out. There is also been an increase in the frequency with which she is experiencing or olfactory hallucinations, and tells me that she is currently "smelling skunk" and tasting "baking soda" in her mouth. The patient tells me that she does not intend to harm herself in the hospital, but says that she is having passive thoughts of and is growing tired of her continued symptoms. Somewhat inexplicably, the patient tells me that she feels gabapentin has helped, in this sense that her returning fog is "not as bad as usual," and she also indicates that gabapentin has helped with her pain symptoms. Further, she feels that Abilify 15 mg daily has "worked well in the past," and she is not experiencing any known side effects from this. The plan is to adjust her medications, provide active support and encouragement, together with education regarding her illness and coping with her illness. We talked a great deal about the importance of adherence with prescribed psychiatric medications, and the patient admits today that she sometimes stops her medicine suddenly because she enjoys feeling "a little bit manic." However , she realizes that the other part of not taking her medications is that she can get the "fog brain." Review of Systems Constitutional: No fever, No chills, No sweats, No weight loss, No weakness, No fatigue, No problem reported ENT: No hearing loss, No unusual epistaxis, No nasal symptoms, No sore throat, No tinnitus, No dental problems, No trouble swallowing, No problem reported Cardiovascular: No chest pain, No orthopnea, No PND, No edema, No claudication , No palpitations, No problem reported Musculoskeletal: + joint pain (the patient continues to experience pain in her knee, but notes that she feels the gabapentin is helping relieve the pain.) Neurologic: No memory loss, No paralysis, No weakness, No numbness/tingling, No vertigo, No balance problems, No problem reported Integumentary: No rash, No itch, No new/changing skin lesions, No color change , No bleeding, No problem reported Sleep Information Total Hours of Sleep: 6.75 Meal Information Percent of Breakfast Consumed: 100 Percent of Lunch Consumed: 100 Percent of Dinner Consumed: 100 Mental Status Exam During interview pt is: alert and oriented, cooperative Appearance: appropriately dressed (obese) Eye contact is: fair Motor behavior is: steady gait & station (slight limp favoring right knee), no abnormal motor movements Speech: normal in rate, rhythm & volume (somewhat sparse and less spontaneous than yesterday.) Affect: anxious, constricted Mood is: dysphoric, anxious, other ("Pretty good. I don't feel manic or depressed.") Thought process: goal directed, tangential Thought content: reality based without delusions Suicidal thought are: denied (but would like to be ) Homicidal thoughts are: denied Hallucinations: auditory (patient reports she is now hearing sounds. She notes this has happened in the past.), denies visual, other (the patient reports that today she has been experiencing "more skunk smells" and is currently smoking a skunk and is tasting "baking soda" in her mouth.) Cognition: memory grossly intact, attention grossly intact Intelligence estimated to be: average Insight: fair Judgement: fair Summary of Past History The patient reports multiple med trials to include but not limited to: -Seroquel - disconnected -Abilify plus Klonopin - that was the best combination believes her dose was possibly 20 mg, insurance barriers after her discharge from [place] kept her from continuing that medication -Paxil none Buspar - Vaginal bleeding Depakote weight gain and difficulty with the labs ultimately believe she was placed on Abilify Wellbutrinput on with Depakote believe she tolerated it Lithobid tremor Risperdal - edema Tegretol believes this medicine is familiar she may been on it for a brief time but is unsure Sage extremely tired was accused of being on drugs because she was so obtunded Trazodone ineffective for sleep Ambien ineffective for sleep Baljeet ineffective for sleep "Some XR medication" that insurance wouldn't pay for really helped my sleep Klonopin alongside Abilify and trazodone at last hospital discharge Impression The patient is a 46-year-old single white female who reports she has a known diagnosis of bipolar disorder. She also has a long history, dating back approximately 22 years, of frequent olfactory hallucinations, primarily of "a skunk." Further, she has a intermittent history of visual hallucinations, such as seeing a man who was holding a piece of paper and standing in front of her, or seen clenches of people walk past her when she later realizes that no one is there. The patient tells me that she was experiencing mixed symptoms of mary grace and depression prior to admission, but basically describes symptoms consistent with mary grace, such as decreased desire for sleep, increased energy, behavior such as walking for 7-1/2 hours continuously, and racing thoughts. Further, she tells me that she was becoming aware that her thoughts were growing illogical, a circumstance that she refers to as "a fog." Today, the patient tells me that she feels that she has been in a "fog" all day, and that her thoughts have been "jumbled" and confused. She also says that she frequently has to check with others in order to tell what is real and what makes sense and what doesn't make sense. The patient is reported in the past she has episodically experienced what may be auditory hallucinations or illusions, and today she tells me that she is hearing "sounds" that are not exactly voices that seem not to be emanating from anything in particular. Olfactory hallucinations have worsened since yesterday, and she was actively hallucinating during our interview. Passive thoughts of , but contracts for safety in the hospital. Today, we are increasing her dose of gabapentin to 600 mg in the morning, 300 mg at 1406 100 mg at bedtime. We will continue aripiprazole 15 mg daily. Continued Inpatient Care We are in the process of titrating the patient's medications. She today is voicing passive thoughts of , disorganized thinking, and tense indication of her perceptual disturbances. Inpatient psychiatric hospitalization remains medically necessary and the least restrictive intervention available. Plan (1) Mood disorder #1 safety patient feels her mood disorder is so extreme that she feels "would rather be " as well as disconnected and feels she cannot trust her own behavior as she feels out of control and is having hallucinations. Inpatient cares the most appropriately stressed restrictive setting for care at this time until patient's mood stabilized and we are able to get her access to aftercare. #2 neurology consult for their opinion regarding utility of EEG and possible MRI imaging of the temporal lobe to rule out temporal lobe epilepsy given some of the atypical features of her presentation to include olfactory and visual hallucinations that only occur with mood episodes and yet her affect is not consistent with others with manic with psychotic features are depressed with psychotic features as noted above #3 medications for psychosis Abilify 5 mg today and 10 mg by mouth daily with titration as tolerated to stabilize mood and treat psychosis We will obtain fasting lipids and blood sugar in the morning #4 group, lassiter milieu, supportive therapy, safety checks while an inpatient unit 01/09 -fast labs within normal limits. - MRI normal -EEG results pending -patient agrees to increased Abilify to 15 mg. No side effects including akathisia from current dose. 01/10 -EEG done yesterday results: Normal awake only routine EEG. There was no electrographic seizures or epileptiform discharges. - Discussed risks benefits and alternatives for medications for anxiety. Reviewed patient's past med trials. Patient agrees to a trial of gabapentin for anxiety she understands this is an off label use. We'll start at 300 mg today with titration tomorrow to twice a day and increased to 3 times per day on 01/12 -Patient needs aftercare with psychiatry and a therapist. She would benefit from having a rifle case repairer as she has a history of very poor compliance after discharge from inpatient hospitalizations. 01/11 -While yesterday's EEG showed no electrographic seizures or epileptoid discharges, and absence of positive findings on EEG does not necessarily rule out complex partial seizures. The patient is not known to have a history of grand mal seizures or other forms of seizures, and while it is certainly possible that the patient's olfactory and visual hallucinations may represent a migraine equivalent, it may be somewhat atypical for the patient to have such specific visual hallucinations that she is able to read a hallucinated piece of paper that is being held in the hallucinated hand of a man that she sees standing in front of her., Getting the clinical picture is the fact the patient acknowledges that she has been chronically nonadherent with her outpatient medications. She also indicates that she had been drinking "very heavily" until the past September. More specifically, she said that she was drinking "a bottle of [place] iced tea, with beer chasers" on a daily basis while she was living above a bar. She said she stopped in September after she moved , became concerned that she was drinking too much, and has been largely abstinent since that time, although she does admit that she has had "several beers" in the week leading up to the admission. Today, the plan is to continue titrating gabapentin to 300 mg 3 times a day, and we will continue aripiprazole 15 mg daily. 01/12/17. - Today, the patient is able to talk about the fact that she sometimes stops her psychiatric medications outside of the hospital because she doesn't like not being "a little bit manic." She understands that this often results in an exacerbation of her illness and in addition to an elevated mood, she ends up becoming confused and engaging in behaviors such as the 7-1/2 hours of walking that immediately preceded the current admission. Today we are increasing her dose of gabapentin to 600 mg in the morning 300 mg at 1406 100 mg at bedtime, both for mood stabilization and because it is possible that her olfactory and visual hallucinations may be related to partial seizures or migraine equivalents. (2) Asthma Albuterol inhaler when necessary, Zyrtec to control allergies triggers, recommend she quit smoking (3) GERD (gastroesophageal reflux disease) Patient states dietary modulation helps control her GERD, she will manage teasing her diet from the menu (4) Knee pain, right Patient has access to ibuprofen and Tylenol when necessary on the unit. She will need follow-up with primary care for further evaluation as she said previously she was pending imaging but has not seen primary care in some time. 01/09 Patient may have ibuprofen prn. Patient did report that she has had asthma attack if takes more than 600 mg of ibuprofen at a time. 01/10 patient should have outpatient follow-up with orthopedics after discharge. Patient did have a brace ordered by orthopedics in August. It is with her belongings that she has been unable to retrieve from her apartment. 01/11 today, the patient reports that her knee pain has been diminished, a circumstance that she attributes to gabapentin. She also has insight into the fact that she may have exacerbated an earlier knee injury by walking excessively on the day prior to admission. 01/12. The patient tells me that her knee pain has continued to improve, and she attributes this to gabapentin. (5) Nicotine dependence Recommend smoking cessation, patient is precontemplation all at this time 01/11 I encouraged the patient to continue to consider smoking cessation, and advised her strongly in this direction. The patient says that she is certainly considering it and is aware of the related health hazards. Discharge / Aftercare Planning Primary Care Physician: Name: None Therapist: Name: None Leather Goods Sales Representative: Name: None Visit Code E&M Code: 12943 Inventory Assets Strengths: Patient is willing for care, she is willing to take medications, she is a good historian, she seems very intelligent. Needs: ID card, aftercare, mood stabilization, safety Risk Factors Assessment : Yes /single/: Yes Health problems: Yes Mental Health Diagnoses: Yes Previous psychiatric stay: Yes Hopelessness: Yes Smoker: Yes Protective Factors Assessment [employer] beliefs: No : No Responsible for young children: No Employed: No Stable relationships: No Supportive family: No Good rapport with provider: No Data Vital Signs Last 24 Hrs: Date Time Temp Pulse Resp B/P (MAP) Pulse Ox O2 Delivery O2 Flow Rate FiO2 01/12/17 06:43 36.4 51 18 127/84 66 121/84 Meds Administered Last 24 Hrs: Meds Administered (Past 24Hrs) Medications (Trade) Dose Ordered Sig/Sana Route Start Time Stop Time Status Last Admin Dose Admin Gabapentin (Neurontin Cap) 300 mg BID PO 01/11/17 09:00 01/11/17 22:01 DC 01/11/17 22:00 300 MG Gabapentin (Neurontin Cap) 300 mg TID PO 01/12/17 09:00 01/12/17 14:35 DC 01/12/17 07:59 300 MG Gabapentin (Neurontin Cap) 300 mg QD@1400 PO 01/13/17 14:00 02/12/17 13:59 01/12/17 14:51 300 MG
[2017-01-12] MEDS: GABAPENTIN 600 MG TAB PO SCH (21:16)
[2017-01-12 21:31] VITALS: BP 142/81; PULSE 69
[2017-01-12] MEDS: IBUPROFEN 600 MG TAB PO PRN (22:54)
[2017-01-13 07:00] VITALS: BP_SYST 123; BP_SYST 124; BP_DIAS 83; BP_DIAS 88; PULSE 60; PULSE 73; TEMP 36.4
[2017-01-13] MEDS: NICOTINE POLACRILEX 2 MG GUM MT PRN ×4 (07:31→22:00)
[2017-01-13] MEDS: GABAPENTIN 600 MG TAB PO SCH ×2 (08:16→22:52)
[2017-01-13] MEDS: CETIRIZINE HCL 10 MG TAB PO SCH (08:16)
[2017-01-13] MEDS: ARIPIprazole TAB 5 MG TAB PO SCH (08:16)
[2017-01-13] MEDS: NICOTINE 21 MG/24 HR TDSY TD SCH (08:16)
[2017-01-13] MEDS: IBUPROFEN 600 MG TAB PO PRN (08:22)
--- NOTE | 2017-01-13 11:24 | Psychiatric Progress Notes ---
Progress Note Date of Service Jan 13, 2017. Interval History Amanda Holliday is a 46-year-old female with history of bipolar I disorder who currently lives in [place] with a friend. Amanda Holliday was admitted on a 201 voluntary commitment. Patient is admitted from home . The patient was brought to the ED by the friend due to worsening of mood and psychotic symtpoms to include worsening of olfactory hallucinations (smelling vicks and skunk), visual hallucinations (seeing people out of the corners of her eyes), and feeling disconnected "that things don't seem real". Patient had an MRI on which showed no abnormality and an EEG on 01/10 which was unremarkable. Chief Complaint "The fog has lifted, but I feel a little bit more manicky.". Subjective Patient was seen & assessed interval progress reviewed with Treatment Team. I met individually with the patient in order to assess her current mental status, review her treatment plan with her, and make any necessary adjustments in her treatment plan. I also provided an opportunity for the patient asked questions and raise concerns. She tells me that at the higher dose of Neurontin she feels that her "fog" has lifted. By that, she finds that her thoughts are more clear and she is better able to distinguish what's real from what isn't. However, she now tells me that she has been feeling "a bit more manicky," by that, she means that her mood has been brighter, and she feels more energy. Behaviorally, we are seeing no particular change, and the patient' reports of ongoing problems occur within the context of the fact that she is currently homeless. On examination, the patient's affect is bright, but not elated or expansive. There is no evidence of pressured speech, flight of ideas, grandiosity, or any psychotic features. She continues to periodically experience olfactory hallucinations, but has not had any further auditory hallucinations or illusions. Review of Systems Constitutional: No fever, No chills, No sweats, No weight loss, No weakness, No fatigue, No problem reported ENT: No hearing loss, No unusual epistaxis, No nasal symptoms, No sore throat, No tinnitus, No dental problems, No trouble swallowing, No problem reported Respiratory: No cough, No sputum, No wheezing, No shortness of breath, No dyspnea on exertion, No dyspnea at rest, No hemoptysis, No problem reported Cardiovascular: No chest pain, No orthopnea, No PND, No edema, No claudication , No palpitations, No problem reported Abdomen: No pain, No nausea, No vomiting, No diarrhea, No constipation, No GI bleeding, No problem reported Musculoskeletal: + problem reported (ongoing pain in her right knee, secondary to an injury sustained while dancing last summer.) Neurologic: No memory loss, No paralysis, No weakness, No numbness/tingling, No vertigo, No balance problems, No problem reported Psychiatric: No depression symptoms, No anhedonism, No anxiety, No insomnia, No substance abuse, No problem reported Sleep Information Total Hours of Sleep: 6.50 Meal Information Percent of Breakfast Consumed: 100 Percent of Lunch Consumed: 100 Percent of Dinner Consumed: 100 Mental Status Exam During interview pt is: alert and oriented, cooperative Appearance: appropriately dressed (obese) Eye contact is: good Motor behavior is: steady gait & station (slight limp favoring right knee), no abnormal motor movements Speech: normal in rate, rhythm & volume (somewhat sparse and less spontaneous than yesterday.) Affect: other (euthymic) Mood is: other (slightly elevated.) Thought process: goal directed, tangential Thought content: reality based without delusions Suicidal thought are: denied (but would like to be ) Homicidal thoughts are: denied Hallucinations: auditory (patient reports she is now hearing sounds. She notes this has happened in the past.), denies visual, other (the patient reports that today she has been experiencing "more skunk smells" and is currently smoking a skunk and is tasting "baking soda" in her mouth.) Cognition: memory grossly intact, attention grossly intact Intelligence estimated to be: average Insight: fair Judgement: fair Summary of Past History The patient reports multiple med trials to include but not limited to: -Seroquel - disconnected -Abilify plus Klonopin - that was the best combination believes her dose was possibly 20 mg, insurance barriers after her discharge from [facility] kept her from continuing that medication -Paxil none Buspar - Vaginal bleeding Depakote weight gain and difficulty with the labs ultimately believe she was placed on Abilify Wellbutrinput on with Depakote believe she tolerated it Lithobid tremor Risperdal - edema Tegretol believes this medicine is familiar she may been on it for a brief time but is unsure Sage extremely tired was accused of being on drugs because she was so obtunded Trazodone ineffective for sleep Ambien ineffective for sleep Baljeet ineffective for sleep "Some XR medication" that insurance wouldn't pay for really helped my sleep Klonopin alongside Abilify and trazodone at last hospital discharge Impression The patient is a 46-year-old single white female who reports she has a known diagnosis of bipolar disorder. She also has a long history, dating back approximately 22 years, of frequent olfactory hallucinations, primarily of "a skunk." Further, she has a intermittent history of visual hallucinations, such as seeing a man who was holding a piece of paper and standing in front of her, or seen clenches of people walk past her when she later realizes that no one is there. The patient tells me that she was experiencing mixed symptoms of mary grace and depression prior to admission, but basically describes symptoms consistent with mary grace, such as decreased desire for sleep, increased energy, behavior such as walking for 7-1/2 hours continuously, and racing thoughts. Further, she tells me that she was becoming aware that her thoughts were growing illogical, a circumstance that she refers to as "a fog." Today, the patient tells me that she feels that she has been in a "fog" all day, and that her thoughts have been "jumbled" and confused. She also says that she frequently has to check with others in order to tell what is real and what makes sense and what doesn't make sense. The patient is reported in the past she has episodically experienced what may be auditory hallucinations or illusions, and today she tells me that she is hearing "sounds" that are not exactly voices that seem not to be emanating from anything in particular. Olfactory hallucinations have worsened since yesterday, and she was actively hallucinating during our interview. Passive thoughts of , but contracts for safety in the hospital. Today, we are increasing her dose of gabapentin to 600 mg in the morning, 300 mg at 1406 100 mg at bedtime. We will continue aripiprazole 15 mg daily. Continued Inpatient Care We are in the process of titrating the patient's medications. She today is voicing passive thoughts of , disorganized thinking, and tense indication of her perceptual disturbances. Inpatient psychiatric hospitalization remains medically necessary and the least restrictive intervention available. Plan (1) Mood disorder #1 safety patient feels her mood disorder is so extreme that she feels "would rather be " as well as disconnected and feels she cannot trust her own behavior as she feels out of control and is having hallucinations. Inpatient cares the most appropriately stressed restrictive setting for care at this time until patient's mood stabilized and we are able to get her access to aftercare. #2 neurology consult for their opinion regarding utility of EEG and possible MRI imaging of the temporal lobe to rule out temporal lobe epilepsy given some of the atypical features of her presentation to include olfactory and visual hallucinations that only occur with mood episodes and yet her affect is not consistent with others with manic with psychotic features are depressed with psychotic features as noted above #3 medications for psychosis Abilify 5 mg today and 10 mg by mouth daily with titration as tolerated to stabilize mood and treat psychosis We will obtain fasting lipids and blood sugar in the morning #4 group, lassiter milieu, supportive therapy, safety checks while an inpatient unit 01/09 -fast labs within normal limits. - MRI normal -EEG results pending -patient agrees to increased Abilify to 15 mg. No side effects including akathisia from current dose. 01/10 -EEG done yesterday results: Normal awake only routine EEG. There was no electrographic seizures or epileptiform discharges. - Discussed risks benefits and alternatives for medications for anxiety. Reviewed patient's past med trials. Patient agrees to a trial of gabapentin for anxiety she understands this is an off label use. We'll start at 300 mg today with titration tomorrow to twice a day and increased to 3 times per day on 01/12 -Patient needs aftercare with psychiatry and a therapist. She would benefit from having a corrections caseworker as she has a history of very poor compliance after discharge from inpatient hospitalizations. 01/11 -While yesterday's EEG showed no electrographic seizures or epileptoid discharges, and absence of positive findings on EEG does not necessarily rule out complex partial seizures. The patient is not known to have a history of grand mal seizures or other forms of seizures, and while it is certainly possible that the patient's olfactory and visual hallucinations may represent a migraine equivalent, it may be somewhat atypical for the patient to have such specific visual hallucinations that she is able to read a hallucinated piece of paper that is being held in the hallucinated hand of a man that she sees standing in front of her., Getting the clinical picture is the fact the patient acknowledges that she has been chronically nonadherent with her outpatient medications. She also indicates that she had been drinking "very heavily" until the past September. More specifically, she said that she was drinking "a bottle of [place] iced tea, with beer chasers" on a daily basis while she was living above a bar. She said she stopped in September after she moved , became concerned that she was drinking too much, and has been largely abstinent since that time, although she does admit that she has had "several beers" in the week leading up to the admission. Today, the plan is to continue titrating gabapentin to 300 mg 3 times a day, and we will continue aripiprazole 15 mg daily. 01/12/17. - Today, the patient is able to talk about the fact that she sometimes stops her psychiatric medications outside of the hospital because she doesn't like not being "a little bit manic." She understands that this often results in an exacerbation of her illness and in addition to an elevated mood, she ends up becoming confused and engaging in behaviors such as the 7-1/2 hours of walking that immediately preceded the current admission. Today we are increasing her dose of gabapentin to 600 mg in the morning 300 mg at 1406 100 mg at bedtime, both for mood stabilization and because it is possible that her olfactory and visual hallucinations may be related to partial seizures or migraine equivalents. 01/13/17 - The patient reports today that she feels her mood is somewhat more elevated than it ought to be. She describes the feeling as "a little manicky." At the same time, she tells me that the "fog" has improved. As above, the patient uses the word "fog" to refer to having difficulty distinguishing what is real and what isn't, as well as difficulty focusing. She has tolerated increased dose of gabapentin to 600 mg every morning 300 mg at 1406 100 mg in the evening, and the patient says that she feels that this change has helped her feel more focused and "foggy." Today, she denies suicidal thoughts. (2) Asthma Albuterol inhaler when necessary, Zyrtec to control allergies triggers, recommend she quit smoking (3) GERD (gastroesophageal reflux disease) Patient states dietary modulation helps control her GERD, she will manage teasing her diet from the menu (4) Knee pain, right Patient has access to ibuprofen and Tylenol when necessary on the unit. She will need follow-up with primary care for further evaluation as she said previously she was pending imaging but has not seen primary care in some time. 01/09 Patient may have ibuprofen prn. Patient did report that she has had asthma attack if takes more than 600 mg of ibuprofen at a time. 01/10 patient should have outpatient follow-up with orthopedics after discharge. Patient did have a brace ordered by orthopedics in August. It is with her belongings that she has been unable to retrieve from her apartment. 01/11 today, the patient reports that her knee pain has been diminished, a circumstance that she attributes to gabapentin. She also has insight into the fact that she may have exacerbated an earlier knee injury by walking excessively on the day prior to admission. 01/12. The patient tells me that her knee pain has continued to improve, and she attributes this to gabapentin. (5) Nicotine dependence Recommend smoking cessation, patient is precontemplation all at this time 01/11 I encouraged the patient to continue to consider smoking cessation, and advised her strongly in this direction. The patient says that she is certainly considering it and is aware of the related health hazards. Discharge / Aftercare Planning Primary Care Physician: Name: None Therapist: Name: None Credit Control Assistant: Name: None Visit Code E&M Code: 23811 Inventory Assets Strengths: Patient is willing for care, she is willing to take medications, she is a good historian, she seems very intelligent. Needs: ID card, aftercare, mood stabilization, safety Risk Factors Assessment : Yes /single/: Yes Health problems: Yes Mental Health Diagnoses: Yes Previous psychiatric stay: Yes Hopelessness: Yes Smoker: Yes Protective Factors Assessment Religion beliefs: No : No Responsible for young children: No Employed: No Stable relationships: No Supportive family: No Good rapport with provider: No Data Vital Signs Last 24 Hrs: Date Time Temp Pulse Resp B/P (MAP) Pulse Ox O2 Delivery O2 Flow Rate FiO2 01/13/17 07:00 36.4 60 16 124/83 73 123/88 01/12/17 21:31 69 18 142/81 Meds Administered Last 24 Hrs: Meds Administered (Past 24Hrs) Medications (Trade) Dose Ordered Sig/Sana Route Start Time Stop Time Status Last Admin Dose Admin Gabapentin (Neurontin Cap) 300 mg TID PO 01/12/17 09:00 01/12/17 14:35 DC 01/12/17 07:59 300 MG Gabapentin (Neurontin Tab) 600 mg BID PO 01/12/17 22:00 02/11/17 21:59 01/13/17 08:16 600 MG Gabapentin (Neurontin Cap) 300 mg QD@1400 PO 01/13/17 14:00 02/12/17 13:59 01/12/17 21:15 300 MG Gabapentin (Neurontin Cap) 300 mg NOW ONCE PO 01/12/17 15:00 01/12/17 15:01 DC 01/12/17 15:02 300 MG
[2017-01-13] MEDS: GABAPENTIN 300 MG CAP PO SCH (17:39)
[2017-01-14] MEDS: IBUPROFEN 600 MG TAB PO PRN ×3 (02:25→23:01)
[2017-01-14 06:51] VITALS: BP_SYST 116; BP_SYST 118; BP_DIAS 80; BP_DIAS 83; PULSE 72; PULSE 73; TEMP 36.5
[2017-01-14] MEDS: ACETAMINOPHEN 325 MG TAB PO PRN (06:54)
[2017-01-14] MEDS: GABAPENTIN 600 MG TAB PO SCH ×3 (08:19→21:22)
[2017-01-14] MEDS: ARIPIprazole TAB 5 MG TAB PO SCH (08:19)
[2017-01-14] MEDS: NICOTINE POLACRILEX 2 MG GUM MT PRN ×4 (08:19→21:22)
[2017-01-14] MEDS: CETIRIZINE HCL 10 MG TAB PO SCH (08:19)
[2017-01-14] MEDS: NICOTINE 21 MG/24 HR TDSY TD SCH (08:24)
[2017-01-14] MEDS ORDERED: ARIPIprazole TAB 5 MG TAB PO ONE (12:00)
--- NOTE | 2017-01-14 13:50 | Psychiatric Progress Notes ---
Progress Note Date of Service Jan 14, 2017. Interval History Amanda Holliday is a 46-year-old female with history of bipolar I disorder who currently lives in [place] with a friend. She was admitted on a 201 voluntary commitment from home. Admitted for worsening of mood and psychotic symptoms to include worsening of olfactory hallucinations (smelling vicks and skunk), visual hallucinations (seeing people out of the corners of her eyes), and feeling disconnected "that things don't seem real". Patient had an MRI on 01/08/17 which showed no abnormality and an EEG on 01/10 which was unremarkable. Chief Complaint "I'm smelling Charly's and mint gum, that's why I'm holding this orange". Subjective Patient was seen & assessed interval progress reviewed with Nursing. Pt was seen for interview along with Chantale Gutierrez PA-C. Pt enters room with orange peel in hand and states "I'm smelling Charly's right now along with mint gum" and was hoping the orange smell would distract her. Pt was redirected to focus on the conversation in hopes that she might distract herself in that way as well. Pt states her mood has been "ok, but I'm still really anxious". She reports the majority of her anxiety is caused by the "racing thoughts" she experiences and she makes several attempts during the interview to slow down her speech as well. Pt reports that she is currently "a bit manic" but that "the depressive fog is lifting". Medication trials in the past have caused the patient to feel like "a zombie" and she reports that as a big reason for medication non- compliance in the past. Abilify is reportedly one medication that does not make her feel this way and also helps her thoughts. She is reportedly doing well on this medication, but feels there is still room for improvement. Pt continues to deny SI, but states "I still don't want to be alive". Continues to deny plan or steps taken to complete, and verbalizes reasons she would not act on any thoughts. MCC through the interview, pt mentions that the olfactory hallucinations have disappeared and pt was reminded that distracting herself through activities or conversation during those times could be very beneficial. Review of Systems Psych: denies symptoms other than stated above Constitutional: denied Cardiovascular: denied GI: denied Neurologic: denied Remainder of 10 body systems also reviewed and denied other than noted above. Constitutional: No fever, No chills, No sweats, No weight loss, No weakness, No fatigue, No problem reported Cardiovascular: No chest pain, No orthopnea, No PND, No edema, No claudication , No palpitations, No problem reported Abdomen: No pain, No nausea, No vomiting, No diarrhea, No constipation, No GI bleeding, No problem reported Musculoskeletal: + joint pain (R knee pain ) Psychiatric: + problem reported (as per subjective only ) Sleep Information Total Hours of Sleep: 6.00 Meal Information Percent of Breakfast Consumed: 100 Percent of Lunch Consumed: 100 Percent of Dinner Consumed: 100 Mental Status Exam During interview pt is: alert and oriented, cooperative Appearance: appropriately dressed (obese) Eye contact is: good Motor behavior is: steady gait & station (mild limp), no abnormal motor movements Speech: normal in rate, rhythm & volume (hyperverbal), is pressured ( verbalizes attempts to slow speech) Affect: other (some anixety that resolved as appt progressed) Mood is: anxious Thought process: goal directed, tangential Thought content: reality based without delusions Suicidal thought are: denied ("I still don't want to be alive") Homicidal thoughts are: denied Hallucinations: auditory, denies visual, other (olfactory hallucinations: skunk most common, but currently Charly's and mint gum) Cognition: memory grossly intact, attention grossly intact Intelligence estimated to be: average Insight: fair Judgement: fair Summary of Past History The patient reports multiple med trials to include but not limited to: -Seroquel - disconnected -Abilify plus Klonopin - that was the best combination believes her dose was possibly 20 mg, insurance barriers after her discharge from [place] kept her from continuing that medication -Paxil none Buspar - Vaginal bleeding Depakote weight gain and difficulty with the labs ultimately believe she was placed on Abilify Wellbutrinput on with Depakote believe she tolerated it Lithobid tremor Risperdal - edema Tegretol believes this medicine is familiar she may been on it for a brief time but is unsure Sage extremely tired was accused of being on drugs because she was so obtunded Trazodone ineffective for sleep Ambien ineffective for sleep Baljeet ineffective for sleep "Some XR medication" that insurance wouldn't pay for really helped my sleep Klonopin alongside Abilify and trazodone at last hospital discharge Impression The patient is a 46-year-old single white female who reports she has a known diagnosis of bipolar disorder. She also has a long history, dating back approximately 22 years, of frequent olfactory hallucinations, primarily of "a skunk." Further, she has a intermittent history of visual hallucinations, such as seeing a man who was holding a piece of paper and standing in front of her, or seen clenches of people walk past her when she later realizes that no one is there. The patient tells me that she was experiencing mixed symptoms of mary grace and depression prior to admission, but basically describes symptoms consistent with mary grace, such as decreased desire for sleep, increased energy, behavior such as walking for 7-1/2 hours continuously, and racing thoughts. Further, she tells me that she was becoming aware that her thoughts were growing illogical, a circumstance that she refers to as "a fog." Pt reports improvement in symptoms today and feels as if "the depressive fog is lifting". Pt reports she is still "a bit manic" but is "nowhere near where I might be unsafe". Pt continues to have racing thoughts, but reports they are improving. Olfactory hallucinations ongoing. Passive thoughts of , but contracts for safety in the hospital. Continued Inpatient Care We are in the process of titrating the patient's medications. She today is voicing passive thoughts of , disorganized thinking, and tense indication of her perceptual disturbances. Inpatient psychiatric hospitalization remains medically necessary and the least restrictive intervention available. Plan (1) Mood disorder #1 safety patient feels her mood disorder is so extreme that she feels "would rather be " as well as disconnected and feels she cannot trust her own behavior as she feels out of control and is having hallucinations. Inpatient cares the most appropriately stressed restrictive setting for care at this time until patient's mood stabilized and we are able to get her access to aftercare. #2 neurology consult for their opinion regarding utility of EEG and possible MRI imaging of the temporal lobe to rule out temporal lobe epilepsy given some of the atypical features of her presentation to include olfactory and visual hallucinations that only occur with mood episodes and yet her affect is not consistent with others with manic with psychotic features are depressed with psychotic features as noted above #3 medications for psychosis Abilify 5 mg today and 10 mg by mouth daily with titration as tolerated to stabilize mood and treat psychosis We will obtain fasting lipids and blood sugar in the morning #4 group, lassiter milieu, supportive therapy, safety checks while an inpatient unit 01/09 -fast labs within normal limits. - MRI normal -EEG results pending -patient agrees to increased Abilify to 15 mg. No side effects including akathisia from current dose. 01/10 -EEG done yesterday results: Normal awake only routine EEG. There was no electrographic seizures or epileptiform discharges. - Discussed risks benefits and alternatives for medications for anxiety. Reviewed patient's past med trials. Patient agrees to a trial of gabapentin for anxiety she understands this is an off label use. We'll start at 300 mg today with titration tomorrow to twice a day and increased to 3 times per day on 01/12 -Patient needs aftercare with psychiatry and a therapist. She would benefit from having a case hardener as she has a history of very poor compliance after discharge from inpatient hospitalizations. 01/11 -While yesterday's EEG showed no electrographic seizures or epileptoid discharges, and absence of positive findings on EEG does not necessarily rule out complex partial seizures. The patient is not known to have a history of grand mal seizures or other forms of seizures, and while it is certainly possible that the patient's olfactory and visual hallucinations may represent a migraine equivalent, it may be somewhat atypical for the patient to have such specific visual hallucinations that she is able to read a hallucinated piece of paper that is being held in the hallucinated hand of a man that she sees standing in front of her., Getting the clinical picture is the fact the patient acknowledges that she has been chronically nonadherent with her outpatient medications. She also indicates that she had been drinking "very heavily" until the past September. More specifically, she said that she was drinking "a bottle of [place] iced tea, with beer chasers" on a daily basis while she was living above a bar. She said she stopped in September after she moved , became concerned that she was drinking too much, and has been largely abstinent since that time, although she does admit that she has had "several beers" in the week leading up to the admission. Today, the plan is to continue titrating gabapentin to 300 mg 3 times a day, and we will continue aripiprazole 15 mg daily. 01/12/17. - Today, the patient is able to talk about the fact that she sometimes stops her psychiatric medications outside of the hospital because she doesn't like not being "a little bit manic." She understands that this often results in an exacerbation of her illness and in addition to an elevated mood, she ends up becoming confused and engaging in behaviors such as the 7-1/2 hours of walking that immediately preceded the current admission. Today we are increasing her dose of gabapentin to 600 mg in the morning 300 mg at 1406 100 mg at bedtime, both for mood stabilization and because it is possible that her olfactory and visual hallucinations may be related to partial seizures or migraine equivalents. 01/13/17 - The patient reports today that she feels her mood is somewhat more elevated than it ought to be. She describes the feeling as "a little manicky." At the same time, she tells me that the "fog" has improved. As above, the patient uses the word "fog" to refer to having difficulty distinguishing what is real and what isn't, as well as difficulty focusing. She has tolerated increased dose of gabapentin to 600 mg every morning 300 mg at 1406 100 mg in the evening, and the patient says that she feels that this change has helped her feel more focused and "foggy." Today, she denies suicidal thoughts. 01/14/17 - Pt states her "depressive fog is lifting" and that she feels her "racing thoughts" are improving, but not resolved. She continues to report being anxious. She continues to deny SI, but reports not wanting to be alive. Pt feels Abilify is helping with thoughts and mood and verbalized agreement for increasing the dose from 15mg to 20mg. Will order one time dose of 5mg for today to equal 20mg total dosage and start 20mg am dosing tomorrow. Pt reports ongoing anxiety for the majority of the day. also raised dose of gabapentin to 600mg TID to decrease baseline anxiety (off label). Pt verbalized understand and was agreeable to this change. (2) Asthma Albuterol inhaler when necessary, Zyrtec to control allergies triggers, recommend she quit smoking (3) GERD (gastroesophageal reflux disease) Patient states dietary modulation helps control her GERD, she will manage teasing her diet from the menu (4) Knee pain, right Patient has access to ibuprofen and Tylenol when necessary on the unit. She will need follow-up with primary care for further evaluation as she said previously she was pending imaging but has not seen primary care in some time. 01/09 Patient may have ibuprofen prn. Patient did report that she has had asthma attack if takes more than 600 mg of ibuprofen at a time. 01/10 patient should have outpatient follow-up with orthopedics after discharge. Patient did have a brace ordered by orthopedics in August. It is with her belongings that she has been unable to retrieve from her apartment. 01/11 today, the patient reports that her knee pain has been diminished, a circumstance that she attributes to gabapentin. She also has insight into the fact that she may have exacerbated an earlier knee injury by walking excessively on the day prior to admission. 01/12. The patient tells me that her knee pain has continued to improve, and she attributes this to gabapentin. 01/14 - right knee pain ongoing. states it has been improving recently, reports "popping" it which granted her some relief. Continued to offer ibuprofen and tylenol doses as needed. (5) Nicotine dependence Recommend smoking cessation, patient is precontemplation all at this time 01/11 I encouraged the patient to continue to consider smoking cessation, and advised her strongly in this direction. The patient says that she is certainly considering it and is aware of the related health hazards. Discharge / Aftercare Planning Primary Care Physician: Name: None Therapist: Name: None Felling Machine Operator: Name: None Visit Code E&M Code: 54657 Inventory Assets Strengths: Patient is willing for care, she is willing to take medications, she is a good historian, she seems very intelligent. Needs: ID card, aftercare, mood stabilization, safety Risk Factors Assessment : Yes /single/: Yes Health problems: Yes Mental Health Diagnoses: Yes Previous psychiatric stay: Yes Hopelessness: Yes Smoker: Yes Protective Factors Assessment Jehovah'S Witness beliefs: No : No Responsible for young children: No Employed: No Stable relationships: No Supportive family: No Good rapport with provider: No Data Vital Signs Last 24 Hrs: Date Time Temp Pulse Resp B/P (MAP) Pulse Ox O2 Delivery O2 Flow Rate FiO2 11/11/17 06:51 36.5 72 16 118/83 73 116/80 Meds Administered Last 24 Hrs: Meds Administered (Past 24Hrs) Medications (Trade) Dose Ordered Sig/Sana Route Start Time Stop Time Status Last Admin Dose Admin Gabapentin (Neurontin Tab) 600 mg BID PO 01/12/17 22:00 01/14/17 12:02 DC 01/14/17 08:19 600 MG Gabapentin (Neurontin Cap) 300 mg QD@1400 PO 01/13/17 14:00 01/14/17 12:02 DC 01/13/17 17:39 300 MG Gabapentin (Neurontin Cap) 300 mg NOW ONCE PO 01/12/17 15:00 01/12/17 15:01 DC 01/12/17 15:02 300 MG Aripiprazole (Abilify Tab) 5 mg ONE ONCE PO 01/14/17 12:00 01/14/17 12:05 DC 01/14/17 12:20 5 MG
[2017-01-15] MEDS: ACETAMINOPHEN 325 MG TAB PO PRN (03:06)
[2017-01-15 06:53] VITALS: BP_SYST 117; BP_SYST 126; BP_DIAS 73; BP_DIAS 78; PULSE 64; PULSE 79; TEMP 36.5
[2017-01-15] MEDS: GABAPENTIN 600 MG TAB PO SCH ×3 (08:04→21:39)
[2017-01-15] MEDS: ARIPIprazole TAB 5 MG TAB PO SCH (08:04)
[2017-01-15] MEDS: NICOTINE 21 MG/24 HR TDSY TD SCH (08:05)
[2017-01-15] MEDS: CETIRIZINE HCL 10 MG TAB PO SCH (08:05)
[2017-01-15] MEDS: NICOTINE POLACRILEX 2 MG GUM MT PRN ×4 (08:06→21:39)
[2017-01-15] MEDS: IBUPROFEN 600 MG TAB PO PRN ×2 (08:07→23:35)
--- NOTE | 2017-01-15 14:03 | Psychiatric Progress Notes ---
Progress Note Date of Service Jan 15, 2017. Interval History Amanda Holliday is a 46-year-old female with history of bipolar I disorder who currently lives in [place] with a friend. She was admitted on a 201 voluntary commitment from home. Admitted for worsening of mood and psychotic symptoms to include worsening of olfactory hallucinations (smelling vicks and skunk), visual hallucinations (seeing people out of the corners of her eyes), and feeling disconnected "that things don't seem real". Patient had an MRI on 01/08/17 which showed no abnormality and an EEG on 01/10 which was unremarkable. Chief Complaint "calmer and less manic but a bit more down". Subjective Patient was seen & assessed interval progress reviewed with nursing. Pt described mind as calmer and less racy but having some negative thoughts including passive SI. no plan or intent but having thoughts about wishing could be at times. Pt weary but hopeful that slower thinking is just her go back to a calmer state and does not feel overmedicated or groggy. did notice a bit of tiredness as took abilify at 20mg dose this mooring but reports energy level is fine now. Pt endorsed feeling a little irritated and sad now. Pt denied HI , denied euphoria or grandiosity. endorsed one more olfactory hallucination yesterday afternoon that occurred after yesterday's assessment but none today so far. denied other s/e ot meds, wants to keep Abilify and gabapentin the same for now Review of Systems Constitutional: No fever, No chills, No sweats, No weight loss, No weakness, No fatigue, No problem reported ENT: No hearing loss, No unusual epistaxis, No nasal symptoms, No sore throat, No tinnitus, No dental problems, No trouble swallowing, No problem reported Cardiovascular: No chest pain, No orthopnea, No PND, No edema, No claudication , No palpitations, No problem reported Abdomen: No pain, No nausea, No vomiting, No diarrhea, No constipation, No GI bleeding, No problem reported Neurologic: No memory loss, No paralysis, No weakness, No numbness/tingling, No vertigo, No balance problems, No problem reported Psychiatric: + problem reported (as above denied other ) Sleep Information Total Hours of Sleep: 5.25 Meal Information Percent of Breakfast Consumed: 100 Percent of Lunch Consumed: 100 Percent of Dinner Consumed: 100 Mental Status Exam During interview pt is: alert and oriented, cooperative Appearance: appropriately dressed Eye contact is: good Motor behavior is: steady gait & station, no abnormal motor movements Speech: normal in rate, rhythm & volume (not hyperverbal today ) Affect: other (some anixety that resolved as appt progressed) Mood is: anxious Thought process: goal directed Thought content: reality based without delusions Suicidal thought are: present (passive thoughts), Plan: denied Homicidal thoughts are: denied Hallucinations: auditory, denies visual, other (olfactory hallucinations: skunk most common, but currently Charly's and mint gum) Cognition: memory grossly intact, attention grossly intact Intelligence estimated to be: average Insight: fair Judgement: fair Summary of Past History The patient reports multiple med trials to include but not limited to: -Seroquel - disconnected -Abilify plus Klonopin - that was the best combination believes her dose was possibly 20 mg, insurance barriers after her discharge from [facility] kept her from continuing that medication -Paxil none Buspar - Vaginal bleeding Depakote weight gain and difficulty with the labs ultimately believe she was placed on Abilify Wellbutrinput on with Depakote believe she tolerated it Lithobid tremor Risperdal - edema Tegretol believes this medicine is familiar she may been on it for a brief time but is unsure Zafarmercy extremely tired was accused of being on drugs because she was so obtunded Trazodone ineffective for sleep Ambien ineffective for sleep Baljeet ineffective for sleep "Some XR medication" that insurance wouldn't pay for really helped my sleep Klonopin alongside Abilify and trazodone at last hospital discharge Impression The patient is a 46-year-old single white female who reports she has a known diagnosis of bipolar disorder. She also has a long history, dating back approximately 22 years, of frequent olfactory hallucinations, primarily of "a skunk." Further, she has a intermittent history of visual hallucinations, such as seeing a man who was holding a piece of paper and standing in front of her, or seen clenches of people walk past her when she later realizes that no one is there. The patient tells me that she was experiencing mixed symptoms of mary grace and depression prior to admission, but basically describes symptoms consistent with mary grace, such as decreased desire for sleep, increased energy, behavior such as walking for 7-1/2 hours continuously, and racing thoughts. Further, she tells me that she was becoming aware that her thoughts were growing illogical, a circumstance that she refers to as "a fog." Pt reports improvement in symptoms today and feels as if "the depressive fog is lifting". Pt reports she is still "a bit manic" but is "nowhere near where I might be unsafe". Pt continues to have racing thoughts, but reports they are improving. Olfactory hallucinations ongoing. Passive thoughts of , but contracts for safety in the hospital. Continued Inpatient Care We are in the process of titrating the patient's medications. She today is voicing passive thoughts of , disorganized thinking, and tense indication of her perceptual disturbances. Inpatient psychiatric hospitalization remains medically necessary and the least restrictive intervention available. Plan (1) Mood disorder #1 safety patient feels her mood disorder is so extreme that she feels "would rather be " as well as disconnected and feels she cannot trust her own behavior as she feels out of control and is having hallucinations. Inpatient cares the most appropriately stressed restrictive setting for care at this time until patient's mood stabilized and we are able to get her access to aftercare. #2 neurology consult for their opinion regarding utility of EEG and possible MRI imaging of the temporal lobe to rule out temporal lobe epilepsy given some of the atypical features of her presentation to include olfactory and visual hallucinations that only occur with mood episodes and yet her affect is not consistent with others with manic with psychotic features are depressed with psychotic features as noted above #3 medications for psychosis Abilify 5 mg today and 10 mg by mouth daily with titration as tolerated to stabilize mood and treat psychosis We will obtain fasting lipids and blood sugar in the morning #4 group, lassiter milieu, supportive therapy, safety checks while an inpatient unit 01/09 -fast labs within normal limits. - MRI normal -EEG results pending -patient agrees to increased Abilify to 15 mg. No side effects including akathisia from current dose. 01/10 -EEG done yesterday results: Normal awake only routine EEG. There was no electrographic seizures or epileptiform discharges. - Discussed risks benefits and alternatives for medications for anxiety. Reviewed patient's past med trials. Patient agrees to a trial of gabapentin for anxiety she understands this is an off label use. We'll start at 300 mg today with titration tomorrow to twice a day and increased to 3 times per day on 01/12 -Patient needs aftercare with psychiatry and a therapist. She would benefit from having a rifle case repairer as she has a history of very poor compliance after discharge from inpatient hospitalizations. 01/11 -While yesterday's EEG showed no electrographic seizures or epileptoid discharges, and absence of positive findings on EEG does not necessarily rule out complex partial seizures. The patient is not known to have a history of grand mal seizures or other forms of seizures, and while it is certainly possible that the patient's olfactory and visual hallucinations may represent a migraine equivalent, it may be somewhat atypical for the patient to have such specific visual hallucinations that she is able to read a hallucinated piece of paper that is being held in the hallucinated hand of a man that she sees standing in front of her., Getting the clinical picture is the fact the patient acknowledges that she has been chronically nonadherent with her outpatient medications. She also indicates that she had been drinking "very heavily" until the past September. More specifically, she said that she was drinking "a bottle of [place] iced tea, with beer chasers" on a daily basis while she was living above a bar. She said she stopped in September after she moved , became concerned that she was drinking too much, and has been largely abstinent since that time, although she does admit that she has had "several beers" in the week leading up to the admission. Today, the plan is to continue titrating gabapentin to 300 mg 3 times a day, and we will continue aripiprazole 15 mg daily. 01/12/17. - Today, the patient is able to talk about the fact that she sometimes stops her psychiatric medications outside of the hospital because she doesn't like not being "a little bit manic." She understands that this often results in an exacerbation of her illness and in addition to an elevated mood, she ends up becoming confused and engaging in behaviors such as the 7-1/2 hours of walking that immediately preceded the current admission. Today we are increasing her dose of gabapentin to 600 mg in the morning 300 mg at 1406 100 mg at bedtime, both for mood stabilization and because it is possible that her olfactory and visual hallucinations may be related to partial seizures or migraine equivalents. 01/13/17 - The patient reports today that she feels her mood is somewhat more elevated than it ought to be. She describes the feeling as "a little manicky." At the same time, she tells me that the "fog" has improved. As above, the patient uses the word "fog" to refer to having difficulty distinguishing what is real and what isn't, as well as difficulty focusing. She has tolerated increased dose of gabapentin to 600 mg every morning 300 mg at 1406 100 mg in the evening, and the patient says that she feels that this change has helped her feel more focused and "foggy." Today, she denies suicidal thoughts. 01/14/17 - Pt states her "depressive fog is lifting" and that she feels her "racing thoughts" are improving, but not resolved. She continues to report being anxious. She continues to deny SI, but reports not wanting to be alive. Pt feels Abilify is helping with thoughts and mood and verbalized agreement for increasing the dose from 15mg to 20mg. Will order one time dose of 5mg for today to equal 20mg total dosage and start 20mg am dosing tomorrow. Pt reports ongoing anxiety for the majority of the day. also raised dose of gabapentin to 600mg TID to decrease baseline anxiety (off label). Pt verbalized understand and was agreeable to this change. 01/15/17 - manic symptoms stabilizing further, depressive symptoms lessened over all but still present with some passive SI remaining, peer that pt has connected with is discharging today and could be a factor in this, maintained meds as above (2) Asthma Albuterol inhaler when necessary, Zyrtec to control allergies triggers, recommend she quit smoking (3) GERD (gastroesophageal reflux disease) Patient states dietary modulation helps control her GERD, she will manage teasing her diet from the menu (4) Knee pain, right Patient has access to ibuprofen and Tylenol when necessary on the unit. She will need follow-up with primary care for further evaluation as she said previously she was pending imaging but has not seen primary care in some time. 01/09 Patient may have ibuprofen prn. Patient did report that she has had asthma attack if takes more than 600 mg of ibuprofen at a time. 01/10 patient should have outpatient follow-up with orthopedics after discharge. Patient did have a brace ordered by orthopedics in August. It is with her belongings that she has been unable to retrieve from her apartment. 01/11 today, the patient reports that her knee pain has been diminished, a circumstance that she attributes to gabapentin. She also has insight into the fact that she may have exacerbated an earlier knee injury by walking excessively on the day prior to admission. 01/12. The patient tells me that her knee pain has continued to improve, and she attributes this to gabapentin. 01/14 - right knee pain ongoing. states it has been improving recently, reports "popping" it which granted her some relief. Continued to offer ibuprofen and tylenol doses as needed. (5) Nicotine dependence Recommend smoking cessation, patient is precontemplation all at this time 01/11 I encouraged the patient to continue to consider smoking cessation, and advised her strongly in this direction. The patient says that she is certainly considering it and is aware of the related health hazards. Discharge / Aftercare Planning Primary Care Physician: Name: None Therapist: Name: None Regulatory Affairs Analyst: Name: None Visit Code E&M Code: 86238 Inventory Assets Strengths: Patient is willing for care, she is willing to take medications, she is a good historian, she seems very intelligent. Needs: ID card, aftercare, mood stabilization, safety Risk Factors Assessment : Yes /single/: Yes Health problems: Yes Mental Health Diagnoses: Yes Previous psychiatric stay: Yes Hopelessness: Yes Smoker: Yes Protective Factors Assessment Anabaptist beliefs: No : No Responsible for young children: No Employed: No Stable relationships: No Supportive family: No Good rapport with provider: No Data Vital Signs Last 24 Hrs: Date Time Temp Pulse Resp B/P (MAP) Pulse Ox O2 Delivery O2 Flow Rate FiO2 01/15/17 06:53 36.5 64 16 126/73 79 117/78 Meds Administered Last 24 Hrs: Meds Administered (Past 24Hrs) Medications (Trade) Dose Ordered Sig/Sana Route Start Time Stop Time Status Last Admin Dose Admin Gabapentin (Neurontin Cap) 300 mg QD@1400 PO 01/13/17 14:00 01/14/17 12:02 DC 01/13/17 17:39 300 MG Aripiprazole (Abilify Tab) 20 mg QAM PO 01/15/17 09:00 02/08/17 08:59 01/15/17 08:04 20 MG Gabapentin (Neurontin Tab) 600 mg TID PO 01/14/17 14:00 02/11/17 21:59 01/15/17 08:04 600 MG Aripiprazole (Abilify Tab) 5 mg ONE ONCE PO 01/14/17 12:00 01/14/17 12:05 DC 01/14/17 12:20 5 MG
[2017-01-16] MEDS: ACETAMINOPHEN 325 MG TAB PO PRN (04:19)
[2017-01-16 06:48] VITALS: BP_SYST 112; BP_SYST 128; BP_DIAS 76; BP_DIAS 83; PULSE 71; PULSE 98; TEMP 36.6
[2017-01-16] MEDS: NICOTINE POLACRILEX 2 MG GUM MT PRN ×4 (07:20→21:16)
[2017-01-16] MEDS: NICOTINE 21 MG/24 HR TDSY TD SCH (07:21)
[2017-01-16] MEDS: CETIRIZINE HCL 10 MG TAB PO SCH (07:21)
[2017-01-16] MEDS: GABAPENTIN 600 MG TAB PO SCH ×3 (07:21→21:16)
[2017-01-16] MEDS: ARIPIprazole TAB 5 MG TAB PO SCH (07:21)
--- NOTE | 2017-01-16 12:32 | Psychiatric Progress Notes ---
Progress Note Date of Service Jan 16, 2017. Interval History Amanda Holliday is a 46-year-old female with history of bipolar I disorder who currently lives in [place] with a friend. She was admitted on a 201 voluntary commitment from home. Admitted for worsening of mood and psychotic symptoms to include worsening of olfactory hallucinations (smelling vicks and skunk), visual hallucinations (seeing people out of the corners of her eyes), and feeling disconnected "that things don't seem real". Patient had an MRI on 01/08/17 which showed no abnormality and an EEG on 01/10 which was unremarkable. Chief Complaint "Blah.". Subjective Patient was seen & assessed interval progress reviewed with Treatment Team. The patient says that she isn't as good today as days passed, wondering if its the weather. She is reporting some lower extremity edema (not pitting at this time), that she has not had during this hospitalization. She reports feeling like she is in a "haze", feeling mildly confused "but not dissociating". She is anxious about the idea of discharge, but knows that she can return to her previous arrangement with a friend and if that doesn't work, will go to the local assisted in [place]. She continues to deny any olfactory experiences, but today thought that she heard someone calling her name, and twice looked over her shoulder to find no one there. She continues to deny SI but says that she passively doesn't want to be here. She reports that her thoughts are slower than on admission, and mood is reported as "blah". Review of Systems Constitutional: + fatigue ENT: No hearing loss, No unusual epistaxis, No nasal symptoms, No sore throat, No tinnitus, No dental problems, No trouble swallowing, No problem reported Respiratory: No cough, No sputum, No wheezing, No shortness of breath, No dyspnea on exertion, No dyspnea at rest, No hemoptysis, No problem reported Cardiovascular: + edema (BLE, not pitting at the time of the exam) Abdomen: No pain, No nausea, No vomiting, No diarrhea, No constipation, No GI bleeding, No problem reported Musculoskeletal: No joint pain, No muscle pain, No swelling, No calf pain, No problem reported Neurologic: No memory loss, No paralysis, No weakness, No numbness/tingling, No vertigo, No balance problems, No problem reported Psychiatric: + problem reported ("blah" mood) Integumentary: No rash, No itch, No new/changing skin lesions, No color change , No bleeding, No problem reported Sleep Information Total Hours of Sleep: 5.00 Meal Information Percent of Breakfast Consumed: 100 Percent of Lunch Consumed: 100 Percent of Dinner Consumed: 100 Mental Status Exam During interview pt is: alert and oriented, cooperative Appearance: appropriately dressed, other (overweight) Eye contact is: good Motor behavior is: steady gait & station, no abnormal motor movements Speech: normal in rate, rhythm & volume Affect: blunted, other (some anixety that resolved as appt progressed) Mood is: anxious, other ("blah") Thought process: goal directed Thought content: reality based without delusions Suicidal thought are: denied (but passive thoughts of not wanting to be here) Homicidal thoughts are: denied Hallucinations: auditory, denies visual Cognition: memory grossly intact, attention grossly intact Intelligence estimated to be: average Insight: fair Judgement: fair Summary of Past History The patient reports multiple med trials to include but not limited to: -Seroquel - disconnected -Abilify plus Klonopin - that was the best combination believes her dose was possibly 20 mg, insurance barriers after her discharge from [facility] kept her from continuing that medication -Paxil none Buspar - Vaginal bleeding Depakote weight gain and difficulty with the labs ultimately believe she was placed on Abilify Wellbutrinput on with Depakote believe she tolerated it Lithobid tremor Risperdal - edema Tegretol believes this medicine is familiar she may been on it for a brief time but is unsure Sage extremely tired was accused of being on drugs because she was so obtunded Trazodone ineffective for sleep Ambien ineffective for sleep Baljeet ineffective for sleep "Some XR medication" that insurance wouldn't pay for really helped my sleep Klonopin alongside Abilify and trazodone at last hospital discharge Impression Is anxious about discharge due to unstable living situation, but today is developing a plan. Feels that her symptoms are improved over admission, but some lingering sense of "confusion" with aud hallucinations. Having some BLE edema, mild, but could be related to neurontin that was started here. Will continue current meds and ask the patient to be conscious of her sodium intake, hydration level, and other variables affecting fluid balance. Abilify was checked with her insurance and will have a $0 copay. Continued Inpatient Care We are in the process of titrating the patient's medications. She today is voicing passive thoughts of , disorganized thinking, and tense indication of her perceptual disturbances. Inpatient psychiatric hospitalization remains medically necessary and the least restrictive intervention available. Plan (1) Mood disorder #1 safety patient feels her mood disorder is so extreme that she feels "would rather be " as well as disconnected and feels she cannot trust her own behavior as she feels out of control and is having hallucinations. Inpatient cares the most appropriately stressed restrictive setting for care at this time until patient's mood stabilized and we are able to get her access to aftercare. #2 neurology consult for their opinion regarding utility of EEG and possible MRI imaging of the temporal lobe to rule out temporal lobe epilepsy given some of the atypical features of her presentation to include olfactory and visual hallucinations that only occur with mood episodes and yet her affect is not consistent with others with manic with psychotic features are depressed with psychotic features as noted above #3 medications for psychosis Abilify 5 mg today and 10 mg by mouth daily with titration as tolerated to stabilize mood and treat psychosis We will obtain fasting lipids and blood sugar in the morning #4 group, lassiter milieu, supportive therapy, safety checks while an inpatient unit 01/09 -fast labs within normal limits. - MRI normal -EEG results pending -patient agrees to increased Abilify to 15 mg. No side effects including akathisia from current dose. 01/10 -EEG done yesterday results: Normal awake only routine EEG. There was no electrographic seizures or epileptiform discharges. - Discussed risks benefits and alternatives for medications for anxiety. Reviewed patient's past med trials. Patient agrees to a trial of gabapentin for anxiety she understands this is an off label use. We'll start at 300 mg today with titration tomorrow to twice a day and increased to 3 times per day on 01/12 -Patient needs aftercare with psychiatry and a therapist. She would benefit from having a supervisor case loading as she has a history of very poor compliance after discharge from inpatient hospitalizations. 01/11 -While yesterday's EEG showed no electrographic seizures or epileptoid discharges, and absence of positive findings on EEG does not necessarily rule out complex partial seizures. The patient is not known to have a history of grand mal seizures or other forms of seizures, and while it is certainly possible that the patient's olfactory and visual hallucinations may represent a migraine equivalent, it may be somewhat atypical for the patient to have such specific visual hallucinations that she is able to read a hallucinated piece of paper that is being held in the hallucinated hand of a man that she sees standing in front of her., Getting the clinical picture is the fact the patient acknowledges that she has been chronically nonadherent with her outpatient medications. She also indicates that she had been drinking "very heavily" until the past September. More specifically, she said that she was drinking "a bottle of [place] iced tea, with beer chasers" on a daily basis while she was living above a bar. She said she stopped in September after she moved , became concerned that she was drinking too much, and has been largely abstinent since that time, although she does admit that she has had "several beers" in the week leading up to the admission. Today, the plan is to continue titrating gabapentin to 300 mg 3 times a day, and we will continue aripiprazole 15 mg daily. 01/12/17. - Today, the patient is able to talk about the fact that she sometimes stops her psychiatric medications outside of the hospital because she doesn't like not being "a little bit manic." She understands that this often results in an exacerbation of her illness and in addition to an elevated mood, she ends up becoming confused and engaging in behaviors such as the 7-1/2 hours of walking that immediately preceded the current admission. Today we are increasing her dose of gabapentin to 600 mg in the morning 300 mg at 1406 100 mg at bedtime, both for mood stabilization and because it is possible that her olfactory and visual hallucinations may be related to partial seizures or migraine equivalents. 01/13/17 - The patient reports today that she feels her mood is somewhat more elevated than it ought to be. She describes the feeling as "a little manicky." At the same time, she tells me that the "fog" has improved. As above, the patient uses the word "fog" to refer to having difficulty distinguishing what is real and what isn't, as well as difficulty focusing. She has tolerated increased dose of gabapentin to 600 mg every morning 300 mg at 1406 100 mg in the evening, and the patient says that she feels that this change has helped her feel more focused and "foggy." Today, she denies suicidal thoughts. 01/14/17 - Pt states her "depressive fog is lifting" and that she feels her "racing thoughts" are improving, but not resolved. She continues to report being anxious. She continues to deny SI, but reports not wanting to be alive. Pt feels Abilify is helping with thoughts and mood and verbalized agreement for increasing the dose from 15mg to 20mg. Will order one time dose of 5mg for today to equal 20mg total dosage and start 20mg am dosing tomorrow. Pt reports ongoing anxiety for the majority of the day. also raised dose of gabapentin to 600mg TID to decrease baseline anxiety (off label). Pt verbalized understand and was agreeable to this change. 01/15/17 - manic symptoms stabilizing further, depressive symptoms lessened over all but still present with some passive SI remaining, peer that pt has connected with is discharging today and could be a factor in this, maintained meds as above 01/06 - Continue current meds - Patient report BLE edema today. Will need to monitor due to concerns for neurontin causing (2) Asthma Albuterol inhaler when necessary, Zyrtec to control allergies triggers, recommend she quit smoking (3) GERD (gastroesophageal reflux disease) Patient states dietary modulation helps control her GERD, she will manage teasing her diet from the menu (4) Knee pain, right Patient has access to ibuprofen and Tylenol when necessary on the unit. She will need follow-up with primary care for further evaluation as she said previously she was pending imaging but has not seen primary care in some time. 01/09 Patient may have ibuprofen prn. Patient did report that she has had asthma attack if takes more than 600 mg of ibuprofen at a time. 01/10 patient should have outpatient follow-up with orthopedics after discharge. Patient did have a brace ordered by orthopedics in August. It is with her belongings that she has been unable to retrieve from her apartment. 01/11 today, the patient reports that her knee pain has been diminished, a circumstance that she attributes to gabapentin. She also has insight into the fact that she may have exacerbated an earlier knee injury by walking excessively on the day prior to admission. 01/12. The patient tells me that her knee pain has continued to improve, and she attributes this to gabapentin. 01/14 - right knee pain ongoing. states it has been improving recently, reports "popping" it which granted her some relief. Continued to offer ibuprofen and tylenol doses as needed. (5) Nicotine dependence Recommend smoking cessation, patient is precontemplation all at this time 01/11 I encouraged the patient to continue to consider smoking cessation, and advised her strongly in this direction. The patient says that she is certainly considering it and is aware of the related health hazards. Discharge / Aftercare Planning Primary Care Physician: Name: None Psychiatrist: Name: [facility] Appointment Notes: You will be assigned a psychiatrist after your intake [facility] Date [facility] Appointment: Jan 19, 2017 Time of Appointment: 11:30am Appointment Notes: [address] [place] [address] [employer]: Name: None Visit Code E&M Code: 54962 Inventory Assets Strengths: Patient is willing for care, she is willing to take medications, she is a good historian, she seems very intelligent. Needs: ID card, aftercare, mood stabilization, safety Risk Factors Assessment : Yes /single/: Yes Health problems: Yes Mental Health Diagnoses: Yes Previous psychiatric stay: Yes Hopelessness: Yes Smoker: Yes Protective Factors Assessment Christian beliefs: No : No Responsible for young children: No Employed: No Stable relationships: No Supportive family: No Good rapport with provider: No Data Vital Signs Last 24 Hrs: Date Time Temp Pulse Resp B/P (MAP) Pulse Ox O2 Delivery O2 Flow Rate FiO2 01/16/17 06:48 36.6 71 16 112/76 98 128/83 Meds Administered Last 24 Hrs: Meds Administered (Past 24Hrs) Medications (Trade) Dose Ordered Sig/Sana Route Start Time Stop Time Status Last Admin Dose Admin Aripiprazole (Abilify Tab) 20 mg QAM PO 01/15/17 09:00 02/08/17 08:59 01/16/17 07:21 20 MG Gabapentin (Neurontin Tab) 600 mg TID PO 01/14/17 14:00 02/11/17 21:59 01/16/17 07:21 600 MG Lab Results Last 24 Hrs: 01/08/17 00:07 Red Blood Count 5.30, Mean Corpuscular Volume 87.4, Mean Corpuscular Hemoglobin 30.2, Mean Corpuscular Hemoglobin Concent 34.6, Mean Platelet Volume 10.4, Neutrophils (%) (Auto) 61.0, Lymphocytes (%) (Auto) 32.4, Monocytes (%) (Auto) 5.4, Eosinophils (%) (Auto) 0.6, Basophils (%) (Auto) 0.3, Neutrophils # (Auto) 9.09, Lymphocytes # (Auto) 4.82, Monocytes # (Auto) 0.80, Eosinophils # (Auto) 0.09, Basophils # (Auto) 0.05 01/08/17 00:07 Test 01/07/17 23:53 01/08/17 00:07 01/08/17 00:19 01/09/17 06:51 Urine Color YELLOW Urine Appearance CLEAR (CLEAR) Urine pH 5.0 (4.5-7.5) Urine Specific [place] 1.013 (1.000-1.030) Urine Protein NEG (NEG) Urine Glucose (UA) NEG (NEG) Urine Ketones NEG (NEG) Urine Occult Blood NEG (NEG) Urine Nitrite NEG (NEG) Urine Bilirubin NEG (NEG) Urine Urobilinogen NEG (NEG) Urine Leukocyte Esterase NEG (NEG) Urine Opiates Screen NEG (NEG) Urine Methadone, Qualitative NEG (NEG) Urine Barbiturates NEG (NEG) Urine Phencyclidine (PCP) Level NEG (NEG) Ur Amphetamine/Methamphetamine NEG (NEG) MDMA (Ecstasy) Screen NEG (NEG) Urine Benzodiazepines Screen NEG (NEG) Urine Cocaine Metabolite NEG (NEG) Urine Marijuana (THC) NEG (NEG) White Blood Count 14.89 K/uL (4.8-10.8) Red Blood Count 5.30 M/uL (4.2-5.4) Hemoglobin 16.0 g/dL (12.0-16.0) Hematocrit 46.3 % (37-47) Mean Corpuscular Volume 87.4 fL (80-100) Mean Corpuscular Hemoglobin 30.2 pg (25-34) Mean Corpuscular Hemoglobin Concent 34.6 g/dl (32-36) Platelet Count 238 K/uL (130-400) Mean Platelet Volume 10.4 fL (7.4-10.4) Neutrophils (%) (Auto) 61.0 % Lymphocytes (%) (Auto) 32.4 % Monocytes (%) (Auto) 5.4 % Eosinophils (%) (Auto) 0.6 % Basophils (%) (Auto) 0.3 % Neutrophils # (Auto) 9.09 K/uL (1.4-6.5) Lymphocytes # (Auto) 4.82 K/uL (1.2-3.4) Monocytes # (Auto) 0.80 K/uL (0.11-0.59) Eosinophils # (Auto) 0.09 K/uL (0-0.5) Basophils # (Auto) 0.05 K/uL (0-0.2) RDW Standard Deviation 41.4 fL (36.4-46.3) RDW Coefficient of Variation 12.9 % (11.5-14.5) Immature Granulocyte % (Auto) 0.3 % Immature Granulocyte # (Auto) 0.04 K/uL (0.00-0.02) Anion Gap 7.0 mmol/L (3-11) Est Creatinine Clear Calc Drug Dose 92.8 ml/min Estimated GFR () 87.8 Estimated GFR (Non- 75.7 BUN/Creatinine Ratio 16.4 (10-20) Calcium Level 9.0 mg/dl (8.5-10.1) Total Bilirubin 0.6 mg/dl (0.2-1) Direct Bilirubin 0.2 mg/dl (0-0.2) Aspartate Amino Transf (AST/SGOT) 14 U/L (15-37) Alanine Aminotransferase (ALT/SGPT) 30 U/L (12-78) Alkaline Phosphatase 84 U/L (45-117) Total Protein 8.1 gm/dl (6.4-8.2) Albumin 3.6 gm/dl (3.4-5.0) Thyroid Stimulating Hormone (TSH) 1.120 uIu/ml (0.300-4.500) Ethyl Alcohol mg/dL < 3.0 mg/dl (0-3) Bedside Glucose 118 mg/dl (70-90) Fasting Glucose 97 mg/dl (70-99) Triglycerides Level 73 mg/dl (0-150) Cholesterol Level 153 mg/dl (0-200) HDL Cholesterol 59 mg/dl LDL Cholesterol, Calculated 79 mg/dl VLDL Cholesterol, Calculated 15 mg/dl Cholesterol/HDL Ratio 2.6
[2017-01-16] MEDS: IBUPROFEN 600 MG TAB PO PRN (18:34)
[2017-01-17 06:48] VITALS: BP_SYST 124; BP_SYST 134; BP_DIAS 84; PULSE 69; PULSE 94; TEMP 36.5
[2017-01-17] MEDS: NICOTINE POLACRILEX 2 MG GUM MT PRN ×3 (07:32→14:54)
[2017-01-17] MEDS: CETIRIZINE HCL 10 MG TAB PO SCH (08:07)
[2017-01-17] MEDS: ARIPIprazole TAB 5 MG TAB PO SCH (08:07)
[2017-01-17] MEDS: GABAPENTIN 600 MG TAB PO SCH ×2 (08:07→14:54)
[2017-01-17] MEDS: NICOTINE 21 MG/24 HR TDSY TD SCH (08:07)
[2017-01-17] MEDS ORDERED: ARIP20TA4 PO (09:15)
[2017-01-17] MEDS ORDERED: NICO21DI4 TD (09:15)
[2017-01-17] MEDS ORDERED: NRN600 PO (09:15)
[2017-01-17] MEDS ORDERED: NCR2 MT (09:15)
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
== END 2017-01-17 15:50 | disposition other institution (70) | DRG 884 ==
LOC: C.EDB 23:40 → C.MHU 01-08 04:03
PROVIDERS: ADMIT Psychiatry & Neurology Psychiatry; ATTEND Psychiatry & Neurology Psychiatry
DX: F06.34 Mood disorder due to known physiological condition with mixed features (principal); R44.2 Other hallucinations; F23 Brief psychotic disorder; F17.200 Nicotine dependence, unspecified, uncomplicated; Z82.49 Family history of ischemic heart disease and other diseases of the circulatory system; Z83.3 Family history of diabetes mellitus; Z81.8 Family history of other mental and behavioral disorders; J45.909 Unspecified asthma, uncomplicated; K21.9 Gastro-esophageal reflux disease without esophagitis